=== PATIENT | male | born 1970 | race Caucasian/White ===

== ENCOUNTER 2021-03-13 14:57 | Emergency (ER) | payer SELFPAY ==
[2021-03-13 14:58] VITALS: BP 148/102; PULSE 105; RESP 21; TEMP 36.7; O2SAT 97; BMI 25.0
--- NOTE | 2021-03-13 15:11 | ED.RN ---
pt arrives to ed refusing to wear a mask. a face shield was provided. pt was just at [facility] and was sent to ed. per patient they are not a free clinic any more. he has been verbal aggressive during triage evaluation. pt has been reassured that we are here to help. darlyn keating, rn [id number]
--- NOTE | 2021-03-13 15:59 | ED.VIS.DYS ---
HPI History of Present Illness Chief Complaint: Shortness of Breath Informant: patient Narrative Narrative: 50-year-old male presents to the emergency room Patient is homeless. He states for the past 3 years she has had shortness of breath. He cannot tell me why or what diagnoses he has. He is a smoker. He states he has albuterol rescue inhaler which he is out of. He went to the free clinic today and got mad because they did not have any free samples and they wanted him to pay a co-pay. He came here hoping we can give him an inhaler. He reports that he has been taking Qvar but it does not do any thing for him. He denies any fever or sputum production. [facility] Medical History (Updated 03/13/21 @ 16:[address] Robin Tuttle DO) Chronic dyspnea Home Medications No Known/Unobtainable [No Known Home Medications] 09/04/16 [History Last Taken Unknown] Allergy/AdvReac Type Severity Reaction Status Date / Time No Known Allergies Allergy Verified 03/13/21 15:02 Social History (Updated 03/13/21 @ 16:[address] Robin Tuttle DO) Smoking Status: Current every day smoker substance use type: does not use ROS ROS ED Constitutional Constitutional ED: Denies chills or weight loss Eyes Eyes: Denies change in vision or diplopia ENT ENT ED: Denies ear pain, rhinorrhea or sore throat Cardiovascular Cardiovascular: Denies chest pain, orthopnea, palpitations or racing heartbeat Respiratory/Chest Respiratory/Chest: Reports dyspnea; Denies cough or orthopnea Gastrointestinal Gastrointestinal: Denies abdominal pain, diarrhea, nausea or vomiting Genitourinary Genitourinary ED: Denies dysuria, hematuria or urinary frequency Musculoskeletal Musculoskeletal: Denies arthralgias or myalgias Integumentary Denies abscess or rash Neurologic Neurologic: Denies headache(s) or weakness Psychiatric Psychiatric: Denies anxiety, depression, suicidal ideation or suicidal thoughts Endocrine Endocrinology: Denies polydipsia, polyphagia or polyuria Allergic/Immunologic Allergic/Immunologic ED: Denies mouth swelling, tongue swelling or urticaria EXAM Physical Exam Const Vital Signs: 03/13/21 14:58 Temperature 98.0 F Temperature Source Oral Pulse Rate 105 H Respiratory Rate 21 H Blood Pressure 148/102 H Blood Pressure Mean 117 Pulse Ox 97 Oxygen Delivery Method Room Air Positive well nourished, well developed and unkempt General Appearance ED: unkempt and well developed HEENT Reports normocephalic, head/scalp atraumatic and moist mucous membranes Eyes PERRL and EOMs intact bilaterally Neck no lymphadenopathy, supple and no JVD Resp normal respiratory effort and clear to auscultation bilaterally Cardio regular rate, regular rhythm and no murmurs GI normal to inspection, nondistended, normoactive bowel sounds and non-tender Palpation: soft Back/Spine no CVA tenderness and normal ROM Extremity normal to inspection General Extremety ED: Negative for edema General Extremity: Negative for edema Neuro oriented x3 and CN's II-XII intact bilaterally Sensorium / Orientation: alert Motor Exam: strength 5/5 throughout Psych mental status grossly normal Appearance: unkempt Mood & Affect: Negative for depressed or tearful Skin no rashes or lesions noted and no wounds MDM MDM MDM Narrative Medical decision making narrative: I can get the patient albuterol MDI with a spacer. He needs to follow-up with the free clinic Discharge Plan Triage Chief Complaint: Shortness of Breath ED Provider: Robin Tuttle Dx/Rx/DC Orders Clinical Impression: Chronic dyspnea Instructions: ED Dyspnea Prescriptions: No Action No Known Home Medications RF: 0 Primary Care Provider: Care Physician,No Primary Referrals: Adriana Lyn [NON-STAFF] - As soon as possible Care Physician,No Primary [Primary Care Provider] - Activity Restrictions/Additional Instructions: Inhalers 2 puffs every 4 hours as needed for dyspnea. The rescue inhaler should not be used on a daily basis. Disposition Disposition: Home, Self Care
== END 2021-03-13 16:34 | disposition home or self-care (01) ==
PROVIDERS: Emergency Provider Emergency Medicine
DX: R06.00 Dyspnea, unspecified (principal); R06.02 Shortness of breath; Z59.0 Homelessness; F17.200 Nicotine dependence, unspecified, uncomplicated
CPT/HCPCS: 99282

== ENCOUNTER 2021-04-16 10:13 | Emergency (ER) | payer SELFPAY ==
[2021-04-16 10:14] VITALS: BP 158/118; PULSE 74; RESP 16; TEMP 36.1; O2SAT 98; BMI 25.9
--- NOTE | 2021-04-16 10:30 | EX.ED.DYSGE1 ---
HPI History of Present Illness Chief Complaint: Med Refill Informant: patient Narrative Narrative: Patient is a 50-year-old male who presents to the emergency department for refill of his albuterol inhaler. Patient states he went to an outpatient clinic but was unable to afford the co-pay so he came here instead. Patient does not have a PCP. He is homeless. He states that he has chronic shortness of breath that is no worse than normal. Denies any chest pain at this time. No significant cough. Patient only wants the albuterol inhaler at this time. He denies any other significant complaint. [facility] Medical History (Updated 04/16/21 @ 10:[address] Adolfo Wild DO) Chronic dyspnea Home Medications No Known/Unobtainable [No Known Home Medications] 09/04/16 [History Last Taken Unknown] Allergy/AdvReac Type Severity Reaction Status Date / Time No Known Allergies Allergy Verified 04/16/21 10:16 Social History Smoking Status: Current every day smoker tobacco type: cigarettes substance use type: does not use ROS ROS ED Constitutional Constitutional ED: Denies chills or fever(s) ENT ENT ED: Denies epistaxis or rhinorrhea Cardiovascular Cardiovascular: Denies chest pain Respiratory/Chest Respiratory/Chest: Reports dyspnea; Denies cough Musculoskeletal Musculoskeletal: Denies back pain or neck pain Neurologic Neurologic: Denies dizziness, headache(s) or weakness EXAM Physical Exam Const Vital Signs: 04/16/21 10:14 04/16/21 10:19 Temperature 97 F L Temperature Source Temporal Pulse Rate 74 Respiratory Rate 16 Respiratory Effort Non-Labored Short of Breath Blood Pressure 158/118 H Blood Pressure Mean 131 Pulse Ox 98 Oxygen Delivery Method Room Air General Appearance ED: NAD HEENT Reports normocephalic, head/scalp atraumatic and moist mucous membranes Eyes PERRL and EOMs intact bilaterally Neck supple Chest Wall inspection of chest normal Resp normal respiratory effort and clear to auscultation bilaterally Auscultation: Negative for rales, rhonchi or wheezes Cardio regular rate, regular rhythm and no murmurs Extremity normal to inspection General Extremety ED: Negative for edema General Extremity: Negative for edema Neuro Sensorium / Orientation: alert Motor Exam: strength 5/5 throughout Psych mental status grossly normal Skin no rashes or lesions noted MDM MDM MDM Narrative Medical decision making narrative: Patient presents to the emergency department for refill of his albuterol inhaler. He states he does have Medicare but does not know how to set up a PCP. Did have the social work help him with this. Patient given albuterol inhaler here in the emergency department. Return precautions reviewed. He is discharged home in stable condition. All questions answered. Discharge Plan Triage Chief Complaint: Med Refill ED Provider: Adolfo Wild Dx/Rx/DC Orders Clinical Impression: Encounter for medication refill Instructions: Med Refill Prescriptions: No Action No Known Home Medications RF: 0 Primary Care Provider: Care Physician,No Primary Referrals: Care Physician,No Primary [Primary Care Provider] - 3-5 Days Disposition Disposition: Home, Self Care
--- NOTE | 2021-04-16 11:14 | CM.ED ---
CORAL Note: Referral Source: MD Referral Reason : No Primary Care CORAL met with patient. He reports that he has Medicare. He was provided with information on nursery rn and how to make appointments for PCP. CORAL asked 2 times if patient would allow this ticket writer to make appointment and he declined both time. CORAL talked to registration staff. Per registration patient appears to have medicare a only. Registration said that patient reports he is homeless and can not go to the [employer]. Registration reports that patient was asking about Medicare B and D. CORAL went back in and spoke with patient. He was advised the difference in Medicare program. He said that [employer] told him to come to the hospital as he has hospital benefits. SW explained that while in the ED he is not inpatient and outpatient which would be covered under part A. Patient continued to voice that it would be covered as [employer] told him so. CORAL then provided patient with information on [facility] [employer] and this ticket writer's self pay packet. Patient said he doesn't need it. Sw explained that patient might get prescription assistance through [employer] and patient said Oh, they won't help me. SW explained to patient that there are other prescription programs that he may qualify for and patient then agreed to take self pay packet. Patient said that he has been at [facility]. As this ticket writer was walking out patient said that he didn't want the self pay packet and gave it back to this ticket writer. Plan: CORAL attempted to call for patient and schedule an appointment. Patient said that he is able to make call and declined. Patient was provided with list of PCP/MD for outpatient medical treatment. CORAL attempted to give patient a self pay packet and he declined. CORAL attempted to educate patient on different medicare benefits and coverage. No further CORAL services needed.RN and MD updated. Amy RAZO
[2021-04-16] MEDS: Albuterol Sulfate 8 gm Inhaler (60 puffs) 2 PUFF INHALATION (11:26)
== END 2021-04-16 11:26 | disposition home or self-care (01) ==
LOC: ED 10:48
PROVIDERS: Emergency Provider Emergency Medicine
DX: Z76.0 Encounter for issue of repeat prescription (principal); F17.210 Nicotine dependence, cigarettes, uncomplicated; Z59.0 Homelessness
CPT/HCPCS: 99283

== ENCOUNTER 2021-05-07 13:22 | Emergency (ER) | payer MEDICARE, SELFPAY ==
[2021-05-07 13:22] VITALS: BP 122/75; PULSE 81; RESP 24; TEMP 35.8; O2SAT 97; BMI 55.9
[2021-05-07 13:30] VITALS: O2SAT 98
[2021-05-07 13:34] VITALS: BP 147/115; PULSE 98; RESP 15; O2SAT 98
--- NOTE | 2021-05-07 13:43 | EX.ED.DYSGE1 ---
HPI History of Present Illness Chief Complaint: Shortness of Breath Informant: patient Onset/Context/Timing Onset: - (Acute on chronic) Narrative Narrative: Patient reports presenting due to shortness of breath because he is out of his inhaler. Patient states he went to get a refill today but the correct person [employer] was not there to approve his refill. He reports a history of chronic shortness of breath that is not significantly changed from his current complaint. No fever or chills. No cough. Patient denies any Covid concerns. PFSH PFSH Medical History Chronic dyspnea Smoker Home Medications No Known/Unobtainable [No Known Home Medications] 09/04/16 [History Last Taken Unknown] albuterol 90 mcg INHALATION Q6H PRN PRN 05/07/21 [History Last Taken Unknown] aspirin 81 mg PO DAILY 05/07/21 [History Last Taken Unknown] Allergy/AdvReac Type Severity Reaction Status Date / Time No Known Allergies Allergy Verified 05/07/21 13:22 Social History Smoking Status: Current every day smoker tobacco type: cigarettes substance use type: does not use ROS ROS ED Constitutional Constitutional ED: Denies chills or fever(s) Eyes Eyes: Denies change in vision ENT ENT ED: Denies sore throat Cardiovascular Cardiovascular: Denies chest pain Respiratory/Chest Respiratory/Chest: Reports dyspnea; Denies cough Gastrointestinal Gastrointestinal: Denies abdominal pain, diarrhea, nausea or vomiting Musculoskeletal Musculoskeletal: Denies back pain Integumentary Denies rash Neurologic Neurologic: Denies headache(s) or weakness Allergic/Immunologic Allergic/Immunologic ED: Denies urticaria EXAM Physical Exam Const Vital Signs: 05/07/21 13:22 05/07/21 13:30 05/07/21 13:34 Temperature 96.5 F L Temperature Source Temporal Pulse Rate 81 98 Respiratory Rate 24 H 15 Respiratory Effort Normal Respiratory Depth Normal Respiratory Pattern Normal Blood Pressure 122/75 H 147/115 H Blood Pressure Mean 90 125 Pulse Ox 97 98 Oxygen Delivery Method Room Air Room Air Room Air Positive well nourished and well developed General Appearance ED: well developed HEENT Reports normocephalic and head/scalp atraumatic Eyes PERRL and EOMs intact bilaterally Neck supple Chest Wall inspection of chest normal and palpation of chest normal Resp normal respiratory effort Auscultation: diminished lung sounds Cardio regular rate and regular rhythm GI normal to inspection, nondistended, normoactive bowel sounds and non-tender Palpation: soft Extremity normal to inspection Neuro oriented x3 and no sensory deficits noted Sensorium / Orientation: alert Motor Exam: strength 5/5 throughout Psych Mood & Affect: anxious Skin no rashes or lesions noted MDM MDM MDM Narrative Medical decision making narrative: Patient was given albuterol inhaler here. He demonstrated appropriate use and does feel improved. He does not wish for any further testing. He will be discharged with the inhaler. Discharge Plan Triage Chief Complaint: Shortness of Breath ED Provider: Yeni Pollard Dx/Rx/DC Orders Clinical Impression: Dyspnea Instructions: ED Dyspnea Prescriptions: No Action No Known Home Medications RF: 0 aspirin 81 mg Tablet 81 mg PO DAILY RF: 0 albuterol 90 mcg/actuation Aerosol 90 mcg INHALATION Q6H PRN PRN (Reason: dypsnea) RF: 0 Primary Care Provider: Care Physician,No Primary Referrals: Adriana Lyn [NON-STAFF] - 1 Week if not improving Care Physician,No Primary [Primary Care Provider] - Disposition Disposition: Home, Self Care
[2021-05-07] MEDS: Albuterol Sulfate 8 gm Inhaler (60 puffs) 4 PUFF INHALATION (15:00)
[2021-05-07 15:05] VITALS: BP 132/94; PULSE 75; RESP 16; O2SAT 95
--- NOTE | 2021-05-07 15:05 | ED.RN ---
REVIEWED D/C INSTRUCTIONS, FOLLOW UP CARE, AND S/S THAT WOULD WARRANT A RETURN TO THE ED WITH PT. PT VERBALIZED AN UNDERSTANDING AND DENIES FURTHER QUESTIONS FOR THIS RN. PT SKIN P/W/D, RESP EVEN AND UNLABORED, PT A&O X 3, NO DISTRESS NOTED. PT AMBULATED OUT OF ED, GAIT STEADY.
== END 2021-05-07 15:06 | disposition home or self-care (01) ==
PROVIDERS: Emergency Provider Emergency Medicine
DX: R06.00 Dyspnea, unspecified (principal); F17.210 Nicotine dependence, cigarettes, uncomplicated; Z79.82 Long term (current) use of aspirin; Z79.899 Other long term (current) drug therapy
CPT/HCPCS: 99282

== ENCOUNTER 2021-05-29 12:03 | Emergency (ER) | payer SELFPAY ==
[2021-05-29 12:04] VITALS: BP 161/113; PULSE 117; RESP 16; TEMP 37.1; O2SAT 95; BMI 25.2
--- NOTE | 2021-05-29 12:12 | ED.RN ---
Patient arrives with purposeful forceful breathing. Stating he had SOB and has been seen here the last 3 months for the same. He stated it felt like arms and hands were asleep. Pt. was able to slow breathing with encouragement and stated he was beginning to feel better. He was placed in second triage room to maintain contact in case of furher issues.
--- NOTE | 2021-05-29 12:26 | ED.RN ---
Patient currently talking on telephone without any difficulty. Common speech pattern, speaking full sentences, with no obvious difficulty managing breathing.
[2021-05-29 12:43] VITALS: O2SAT 96
--- NOTE | 2021-05-29 12:58 | ED.VIS.DYS ---
HPI History of Present Illness Chief Complaint: Shortness of Breath Informant: patient Onset/Context/Timing Onset: Month(s) Context: gradual Timing: Intermittent Quality: Positive for Dyspnea on exertion and Wheezing Current Severity: Mild Maximum Severity: Mild Worsened by: Exertion Relieved by: Rest and Albuterol Associated Symptoms cough; Negative for rhinorrhea, post nasal drip, ear pain, fever, clear sputum, white sputum, yellow sputum or green sputum Chest Pain: Positive for None Narrative Narrative: 50-year-old male states he is on disability and has Medicare. Smokes about half a pack of cigarettes a day. States he has had dyspnea and shortness of breath for the last 5 years. Thinks he was diagnosed at one time with COPD. Has no known cardiac disease. Denies any history of DVT or PE. He has no chest pain or hemoptysis. No leg pain or swelling. PE Risk Factors: Negative for Cancer, OCP + Smoking + > 35, Prior DVT or PE, Recent immobilization, Recent surgery and Recent travel Prior similar symptoms: Yes Recent Illness/Hospitalization: No PFSH PFSH Medical History Chronic dyspnea Smoker Home Medications No Known/Unobtainable [No Known Home Medications] 09/04/16 [History Last Taken Unknown] albuterol 90 mcg INHALATION Q6H PRN PRN 05/07/21 [History Last Taken Unknown] aspirin 81 mg PO DAILY 05/07/21 [History Last Taken Unknown] Allergy/AdvReac Type Severity Reaction Status Date / Time No Known Allergies Allergy Verified 05/29/21 12:08 Social History Smoking Status: Current every day smoker tobacco type: cigarettes substance use type: does not use ROS ROS ED ROS Narrative Shortness of Review of Systems ROS Unobtainable: Denies due to encephalopathy Constitutional Constitutional ED: Denies chills or fever(s) Eyes Eyes: Denies change in vision ENT ENT ED: Denies ear pain Cardiovascular Cardiovascular: Denies chest pain Respiratory/Chest Respiratory/Chest: Reports cough and dyspnea Gastrointestinal Gastrointestinal: Denies abdominal pain, diarrhea, nausea or vomiting Genitourinary Genitourinary ED: Denies dysuria Musculoskeletal Musculoskeletal: Denies myalgias Integumentary Denies rash Neurologic Neurologic: Denies headache(s) Psychiatric Psychiatric: Denies depression Endocrine Endocrinology: Denies polyuria Hematologic/Lymphatic Hematologic/Lymphatic: Denies easy bruising Allergic/Immunologic Allergic/Immunologic ED: Denies urticaria EXAM Physical Exam Narrative Exam Narrative: Middle-aged male no acute distress vital signs stable he is afebrile he does not look septic toxic. Patient is actively making himself wheeze once he starts talking and relaxes he is breathing normally. He is not hypoxic. HEENT exam unremarkable. Moist remembers. Neck nontender no JVD no lymphadenopathy. Lungs equal symmetrical. Scattered expiratory wheezes. No rales or rhonchi. Heart regular rhythm about 110 no murmur. Abdomen soft nontender normal bowel sounds no peritoneal signs. Moving all 4 extremities. Calves are nontender no edema or cords. Neurologically is awake alert with no focal motor deficit. In the chair by his bedside he has 10 empty inhalers. Const Vital Signs: 05/29/21 12:04 05/29/21 12:43 Temperature 98.8 F Temperature Source Temporal Pulse Rate 117 H Respiratory Rate 16 Respiratory Effort Short of Breath Blood Pressure 161/113 H Blood Pressure Mean 129 Pulse Ox 95 Oxygen Delivery Method Room Air Room Air Positive well nourished, well developed and unkempt; Negative for obese, cachectic or contractures General Appearance ED: unkempt, well developed and NAD; Negative for cachectic or contractures Nutritional Appearance: Negative for cachectic or obese HEENT Reports moist mucous membranes atraumatic; Negative for trauma Eyes PERRL and EOMs intact bilaterally Neck no lymphadenopathy, supple, no meningeal signs and no JVD Resp normal respiratory effort Auscultation: wheezes; Negative for diminished lung sounds Cardio regular rhythm, S1 normal heart sound, S2 normal heart sound and no murmurs Rate: tachycardic GI non-tender, non-distended and no masses Auscultation: normoactive bowel sounds Palpation: soft; Negative for tender, guarding or rebound tenderness present Back/Spine no CVA tenderness and normal to inspection Extremity normal to inspection General Extremety ED: Negative for edema or tenderness General Extremity: Negative for edema Neuro oriented x3 Sensorium / Orientation: alert, oriented to place and oriented to time Motor Exam: strength 5/5 throughout Psych mental status grossly normal Appearance: unkempt Skin no wounds Lesions: no lesions Rashes: no rashes MDM MDM MDM Narrative Medical decision making narrative: Middle-age male complaining of dyspnea. He needs to stop smoking. He most likely has underlying COPD. He has had prior work-ups. He is requesting an inhaler even know he has a prescription currently for inhaler. He does not want steroids. Patient needs no treatments. He will be discharged home to get his inhaler filled and follow-up with a primary care physician. Discharge Plan Triage Chief Complaint: Shortness of Breath ED Provider: Yimi Grant Dx/Rx/DC Orders Clinical Impression: Chronic dyspnea, COPD (chronic obstructive pulmonary disease) Instructions: ED CHF Left Side, ED Dyspnea Prescriptions: No Action No Known Home Medications RF: 0 aspirin 81 mg Tablet 81 mg PO DAILY RF: 0 albuterol 90 mcg/actuation Aerosol 90 mcg INHALATION Q6H PRN PRN (Reason: dypsnea) RF: 0 Primary Care Provider: Care Physician,No Primary Referrals: Adriana Lyn [NON-STAFF] - As soon as possible Elias Jensen MD [NON-STAFF] - As soon as possible Care Physician,No Primary [Primary Care Provider] - Activity Restrictions/Additional Instructions: Get your inhaler prescription filled. You absolutely have to stop smoking. Follow-up with either the Adriana mehta or Dr. Jensen to have a primary care physician. Disposition Disposition: Home, Self Care
--- NOTE | 2021-05-29 13:13 | ED.RN ---
PT VERY ANGRY THAT HE WAS NOT GIVEN AN INHALER. STATES THIS IS JUST A [facility]AT[facility] AND THAT OUR TIME IS WORTHLESS AND HE IS GOING TO CALL MEDICARE AND TELL THEM NOT TO PAY US BECAUSE WE DIDN'T DO SHIT FOR HIM. STATES HE IS REFUSING TO PAY FOR A INHALER AND WE SHOULD GIVE HIM ONE. PT HILDA LIZ 10 USED INHALER CANISTERS ON THE CHAIR NEXT TO HIM
== END 2021-05-29 13:15 | disposition home or self-care (01) ==
LOC: ED 13:05
PROVIDERS: Emergency Provider Emergency Medicine
DX: R06.00 Dyspnea, unspecified (principal); J44.9 Chronic obstructive pulmonary disease, unspecified; F17.210 Nicotine dependence, cigarettes, uncomplicated; Z79.82 Long term (current) use of aspirin; Z79.899 Other long term (current) drug therapy
CPT/HCPCS: 99282

== ENCOUNTER 2022-03-23 05:37 | Emergency (ER) | payer MEDICARE, MEDICAID, SELFPAY ==
[2022-03-23 05:39] VITALS: BP 181/146; PULSE 102; RESP 20; TEMP 36.6; O2SAT 99; BMI 25.2
[2022-03-23 05:42] VITALS: O2SAT 98
--- NOTE | 2022-03-23 05:51 | EDS_ITS ---
HPI History of Present Illness Chief Complaint: Shortness of Breath Informant: patient Narrative Narrative: Presents with dyspnea. History of COPD states he is cut back on smoking. He ran out of his inhaler. Chronic cough for 5 years. He states chronic wheeze. Denies fevers headache vomiting or diarrhea. History of similar. States inhaler does help. Presented angry yelling at staff, however he was able to be calmed down. He states he does have a prescription for his inhaler however cannot fill it currently. Prior similar symptoms: Yes PFSH PFSH Medical History Chronic dyspnea Smoker Home Medications No Known/Unobtainable [No Known Home Medications] 09/04/16 [History Last Taken Unknown] albuterol 90 mcg/actuation aerosol inhaler 90 mcg inhalation Q6H PRN PRN dypsnea 05/07/21 [History Last Taken Unknown] aspirin 81 mg tablet 81 mg PO DAILY 05/07/21 [History Last Taken Unknown] Allergy/AdvReac Type Severity Reaction Status Date / Time No Known Allergies Allergy Verified 05/29/21 12:08 Social History Smoking Status: Current every day smoker tobacco type: cigarettes substance use type: does not use ROS ROS ED Constitutional Constitutional ED: Denies chills, fever(s) or sweats Eyes Eyes: Denies change in vision ENT ENT ED: Denies dysphagia or sore throat Cardiovascular Cardiovascular: Denies chest pain, leg edema, palpitations or racing heartbeat Respiratory/Chest Respiratory/Chest: Reports cough and dyspnea; Denies dyspnea on exertion Gastrointestinal Gastrointestinal: Denies abdominal pain, diarrhea, nausea or vomiting Genitourinary Genitourinary ED: Denies dysuria, hematuria or urinary frequency Musculoskeletal Musculoskeletal: Denies back pain, extremity pain or neck pain Integumentary Denies rash or wounds Neurologic Neurologic: Denies headache(s), paresthesias or weakness EXAM Physical Exam Const Vital Signs: 03/23/22 05:39 03/23/22 05:42 03/23/22 06:11 Temperature 97.8 F Temperature Source Temporal Pulse Rate 102 H Respiratory Rate 20 H Respiratory Effort Normal Non-Labored Respiratory Depth Normal Respiratory Pattern Normal Blood Pressure 181/146 H Blood Pressure Mean 157 Pulse Ox 99 98 Oxygen Delivery Method Room Air Room Air Positive well nourished and unkempt Constitutional Narrative: Speaking in full sentences. General Appearance ED: unkempt and NAD HEENT Reports moist mucous membranes normocephalic and atraumatic Eyes PERRL, EOMs intact bilaterally and conjunctivae normal General Eye ED: Yes normal appearance of both eyes Neck no lymphadenopathy and supple General: Negative for tenderness Chest Wall Chest: Negative for tenderness Resp normal respiratory effort and normal air movement Effort and Inspection: symmetric chest movement; Negative for respiratory di stress Auscultation: Negative for wheezes Cardio regular rate, regular rhythm and no murmurs Peripheral Pulses: pulses 2+ throughout GI normal to inspection, nondistended, normoactive bowel sounds and non-tender Palpation: Negative for guarding or rebound tenderness present Back/Spine no CVA tenderness and no thoracic nor lumbar tenderness Extremity normal to inspection General Extremety ED: Negative for edema or tenderness General Extremity: Negative for edema Neuro oriented x3 and no sensory deficits noted Sensorium / Orientation: awake and alert Psych Appearance: unkempt Skin Skin Narrative: Feet with dirt and callus. MDM MDM MDM Narrative Medical decision making narrative: Patient nontoxic. Patient out of his inhaler. [facility] take-home inhaler provided. Improved his symptoms. We will continue to try to quit smoking. He is given follow-up as an outpatient. All questions were answered. Discharge Plan Triage Chief Complaint: Shortness of Breath ED Provider: Alden Ferrari Dx/Rx/DC Orders Clinical Impression: Chronic dyspnea, Encounter for medication refill, COPD (chronic obstructive pulmonary disease) Instructions: Asthma and COPD Prescriptions: No Action No Known Home Medications aspirin 81 mg Tablet 81 mg PO DAILY albuterol 90 mcg/actuation Aerosol 90 mcg INHALATION Q6H PRN PRN (Reason: dypsnea) Primary Care Provider: Adriana Lyn Referrals: Adriana Lyn [Primary Care Provider] - 1-2 Weeks Care Physician,No Primary [NON-STAFF] - Activity Restrictions/Additional Instructions: Continue to avoid smoking. Use your inhaler as needed. Disposition Disposition: Home, Self Care Discharge Date/Time: 03/23/22 06:24
[2022-03-23 06:11] VITALS: O2SAT 98
== END 2022-03-23 06:24 | disposition home or self-care (01) ==
LOC: ED 06:14
PROVIDERS: Emergency Provider Emergency Medicine; Visit Provider Emergency Medicine
DX: J44.9 Chronic obstructive pulmonary disease, unspecified (principal); Z76.0 Encounter for issue of repeat prescription; Z79.82 Long term (current) use of aspirin; Z79.899 Other long term (current) drug therapy; F17.210 Nicotine dependence, cigarettes, uncomplicated
CPT/HCPCS: 99282

== ENCOUNTER 2022-04-04 17:41 | Emergency (ER) | payer MEDICARE, MEDICAID, SELFPAY ==
[2022-04-04 17:41] VITALS: BP 127/92; PULSE 122; RESP 16; TEMP 36.6; O2SAT 94; BMI 24.0
--- NOTE | 2022-04-04 18:40 | ED.RN ---
PT STATES HE IS LEAVING FOR AWHILE BUT WILL BE BACK. PT VERBALIZES UNDERSTANDING THAT HE WILL LOSE PLACE IN LINE TO BE SEEN.
== END 2022-04-04 19:00 | disposition left against medical advice (07) ==
LOC: ED 22:30
DX: K08.89 Other specified disorders of teeth and supporting structures (principal); Z53.21 Procedure and treatment not carried out due to patient leaving prior to being seen by health care provider

== ENCOUNTER 2022-04-05 02:09 | Emergency (ER) | payer MEDICARE, MEDICAID, SELFPAY ==
[2022-04-05 02:10] VITALS: PULSE 98; RESP 16; TEMP 36.9; O2SAT 97; BMI 24.7
[2022-04-05 02:13] VITALS: BP 138/106; TEMP 36.9; BMI 24.7
[2022-04-05] MEDS: Amox/Clavulanate 875 MG Tablet PO (02:54)
[2022-04-05] MEDS: Naproxen 500 MG Tablet PO (02:55)
--- NOTE | 2022-04-05 02:55 | EDS_ITS ---
HPI History of Present Illness Chief Complaint: Dental Narrative Narrative: Patient presenting with dental pain. 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 He states he is never had a problem with it. He then stated that he may have had a dental trauma 5 years ago which caused the loss of his right central incisor. He states he is never been seen for this, however he also states that the dentist would not remove it. He has not had a fever or chills. No nausea or vomiting. Has not taken anything for pain except for a beer. He states he has Medicaid and all of his bills are paid in the emergency room. He does not believe he needs a primary care physician. He sees Adriana Lyn at times. PFSH PFSH Medical History Chronic dyspnea Smoker Home Medications albuterol 90 mcg/actuation aerosol inhaler 90 mcg inhalation Q6H PRN PRN dypsnea 05/07/21 [History Last Taken Unknown] aspirin 81 mg tablet 81 mg PO DAILY 05/07/21 [History Last Taken Unknown] amoxicillin 875 mg-potassium clavulanate 125 mg tablet 1 tab PO BID #20 tabs 04/05/22 [Rx Last Taken Unknown] naproxen 500 mg tablet (Naprosyn) 500 mg PO BID PRN pain #30 tabs 04/05/22 [Rx Last Taken Unknown] Allergy/AdvReac Type Severity Reaction Status Date / Time No Known Allergies Allergy Verified 04/04/22 17:42 Social History Smoking Status: Current every day smoker tobacco type: cigarettes substance use type: does not use ROS ROS ED Constitutional Constitutional ED: Denies chills or fever(s) Eyes Eyes: Denies change in vision ENT ENT ED: Reports other Details: Dental pain ; Denies ear pain, rhinorrhea or sore throat Cardiovascular Cardiovascular: Denies chest pain or palpitations Respiratory/Chest Respiratory/Chest: Denies cough or dyspnea Gastrointestinal Gastrointestinal: Denies abdominal pain or constipation Genitourinary Genitourinary ED: Denies dysuria or hematuria Musculoskeletal Musculoskeletal: Denies arthralgias or back pain Integumentary Denies abscess or Abrasions Neurologic Neurologic: Denies headache(s) Psychiatric Psychiatric: Denies anxiety or depression EXAM Physical Exam Const Vital Signs: 04/05/22 02:10 04/05/22 02:13 Temperature 98.4 F 98.5 F Temperature Source Temporal Temporal Pulse Rate 98 Respiratory Rate 16 Blood Pressure 138/106 H Blood Pressure Mean 116 Pulse Ox 97 Oxygen Delivery Method Room Air Positive well nourished General Appearance ED: NAD HEENT HEENT Narrative: Right upper central incisor is fractured. This appears to be an old fracture. It is eroded and decayed. There is no fluctuance around the tooth. Patient states is not swollen. Negative for trauma Mouth ED: Yes oral and palatal mucosa normal, Yes lips normal and Yes tongue normal Mouth: oral and palatal mucosa normal, lips normal and tongue normal Throat: posterior oropharynx normal Eyes PERRL Neck no lymphadenopathy Resp normal respiratory effort Cardio regular rate and regular rhythm Extremity normal to inspection Neuro oriented x3 and CN's II-XII intact bilaterally Sensorium / Orientation: alert Psych mental status grossly normal Skin no rashes or lesions noted MDM MDM MDM Narrative Medical decision making narrative: Patient presenting with dental pain. He states that the started bothering him a few days ago. He lost his upper central incisor either 5 years ago or 10 years ago he keeps changing his story. He also states he is never been seen for it but then states that when he saw dentist he would remove it. Patient does not any facial swelling or any signs of Ludewig's angina. He has not taken anything for pain and request prescriptions because I am poor and my medications are covered. I think it is reasonable to start the patient on Augmentin and Naprosyn. He was given a dental referral sheet. I tried to speak to him at length on the need for a primary care provider so that if his medication should run out or he should need anything he would have a primary care follow-up but he stated no need for that that is why you are here. He became a little bit angry that I was not going to remove his tooth and I told him that we do not remove teeth in the emergency room to which she replied will you remove the limbs but she do not removed teeth. I informed him that we do not remove limbs in the emergency room either. I will give the patient dental referral. He st arted on appropriate medications. Return precautions discussed. Impression: 1. Dental fracture 2. Dental infection Discharge Plan Triage Chief Complaint: Dental ED Provider: Hunter Lopez Dx/Rx/DC Orders Instructions: ED Dental Pain, ED Dental Cavity Prescriptions: New amoxicillin-pot clavulanate 875-125 mg tablet 1 tab PO BID Qty: 20 0RF naproxen [Naprosyn] 500 mg tablet 500 mg PO BID PRN (Reason: pain) Qty: 30 0RF No Action aspirin 81 mg Tablet 81 mg PO DAILY albuterol 90 mcg/actuation Aerosol 90 mcg INHALATION Q6H PRN PRN (Reason: dypsnea) Primary Care Provider: Care Physician,No Primary Referrals: Adriana Lyn [Non-Staff] - Disposition Disposition: Home, Self Care
== END 2022-04-05 02:56 | disposition home or self-care (01) ==
LOC: ED 02:46
PROVIDERS: Emergency Provider Student in an Organized Health Care Education/Training Program; Visit Provider Student in an Organized Health Care Education/Training Program
DX: S02.5XXD Fracture of tooth (traumatic), subsequent encounter for fracture with routine healing (principal); X58.XXXD Exposure to other specified factors, subsequent encounter; K04.7 Periapical abscess without sinus; F17.210 Nicotine dependence, cigarettes, uncomplicated; Z79.82 Long term (current) use of aspirin; Z79.1 Long term (current) use of non-steroidal anti-inflammatories (NSAID)
CPT/HCPCS: 99283

== ENCOUNTER 2022-04-20 08:14 | Emergency (ER) | payer MEDICARE, MEDICAID, SELFPAY ==
[2022-04-20 08:16] VITALS: BP 143/92; PULSE 107; RESP 22; TEMP 36.2; O2SAT 100; BMI 23.7
[2022-04-20 08:25] VITALS: BP 138/105; PULSE 104; RESP 14; O2SAT 96
[2022-04-20 08:27] VITALS: O2SAT 97
--- NOTE | 2022-04-20 08:35 | RAD_ITS ---
EXAM: XR CHEST, 1 VIEW CLINICAL INDICATION: L chest pain, dyspnea TECHNIQUE: Frontal view of the chest. This report was created using [employer] report generation technology. COMPARISON: 01/25/2016 FINDINGS: LUNGS AND PLEURAL SPACES: Unremarkable. No consolidation or edema. No pneumothorax. No effusion. HEART: Unremarkable. Cardiac silhouette not enlarged. MEDIASTINUM: Central airways and mediastinal contour are unremarkable. BONES/JOINTS: Unremarkable. SOFT TISSUES: Unremarkable. RAD/Chest 1 View (Portable) IMPRESSION: No radiographic evidence of acute cardiopulmonary disease. Electronically Signed: Pranay Pace MD at 9:10 EDT ,
--- NOTE | 2022-04-20 08:36 | EKG12_ITS ---
Test Reason : SOB Blood Pressure : / mmHG Vent. Rate : 091 BPM Atrial Rate : 091 BPM P-R Int : 162 ms QRS Dur : 146 ms QT Int : 418 ms P-R-T Axes : 083 -54 085 degrees QTc Int : 514 ms Normal sinus rhythm Left axis deviation Left bundle branch block Abnormal ECG Confirmed by KATHLEEN PATINO, ROSINA ([id number]), graphics editor PAUL DÍAZ ([id number]) on 04/22/2022 9:11:58 AM Referred By: Confirmed By:DEMARCUS WANG MD
--- NOTE | 2022-04-20 08:40 | EX.ED.DYSGE1 ---
HPI History of Present Illness Chief Complaint: Shortness of Breath Onset/Context/Timing Onset: Days Timing: Waxes and wanes Quality: Stabbing Location: Left upper quadrant Maximum Severity: Severe Worsened by: Certain positions Associated Symptoms Associated Symptoms: Shortness of breath Narrative Narrative: Patient has multiple complaints. He reports a stabbing sensation in his left upper quadrant/left lower chest anteriorly. It does not radiate. He is unsure if he had this before. Nothing seemed to bring it on, but is worse with certain positions. Associate with shortness of breath. He was on steroids and inhalers, and they seem to help sometimes, but he is out. Denies fever, sputum change, leg swelling. Denies any history of heart disease or PE/DVT. Denies any recent illness or trauma. He is also complaining of right upper dental pain. He has a fractured tooth secondary to underlying decay. He tries to keep the area clean and he has been taking Augmentin, but he has not been able to see a dentist yet. He also has swelling to his left upper eyelid and is not sure what caused this. [facility] Medical History Chronic dyspnea Smoker Home Medications albuterol 90 mcg/actuation aerosol inhaler 90 mcg inhalation Q6H PRN PRN dypsnea 05/07/21 [History Last Taken Unknown] aspirin 81 mg tablet 81 mg PO DAILY 05/07/21 [History Last Taken Unknown] amoxicillin 875 mg-potassium clavulanate 125 mg tablet 1 tab PO BID #20 tabs 04/05/22 [Rx Last Taken Unknown] naproxen 500 mg tablet (Naprosyn) 500 mg PO BID PRN pain #30 tabs 04/05/22 [Rx Last Taken Unknown] albuterol sulfate 90 mcg/actuation aerosol inhaler (Proventil HFA) 2 puff inhalation Q6H PRN shortness of breath or wheezing #8.5 grams 04/20/22 [Rx Last Taken Unknown] penicillin V potassium 500 mg tablet 500 mg PO 4X/DAY #40 tabs 04/20/22 [Rx Last Taken Unknown] prednisone 10 mg tablet 60 mg PO DAILY 4 days #24 tabs 04/20/22 [Rx Last Taken Unknown] Allergy/AdvReac Type Severity Reaction Status Date / Time No Known Allergies Allergy Verified 04/20/22 08:29 Social History Smoking Status: Current every day smoker tobacco type: cigarettes substance use type: does not use ROS ROS ED Constitutional Constitutional ED: Denies chills or fever(s) Eyes Eyes: Denies blurry vision or change in vision ENT ENT ED: Denies ear pain, rhinorrhea or sore throat Cardiovascular Cardiovascular: Reports chest pain; Denies orthopnea, palpitations, paroxysmal nocturnal dyspnea or racing heartbeat Respiratory/Chest Respiratory/Chest: Reports dyspnea; Denies cough, dyspnea on exertion, orthopnea, paroxysmal nocturnal dyspnea or sputum Gastrointestinal Gastrointestinal: Reports abdominal pain; Denies constipation, diarrhea, melena, nausea or vomiting Genitourinary Genitourinary ED: Denies dysuria or hematuria Musculoskeletal Musculoskeletal: Denies arthralgias or back pain Integumentary Reports abscess; Denies Abrasions or rash Neurologic Neurologic: Denies headache(s) or paresthesias Psychiatric Psychiatric: Denies anxiety Endocrine Endocrinology: Denies cold intolerance Hematologic/Lymphatic Hematologic/Lymphatic: Denies easy bruising EXAM Physical Exam Const Vital Signs: 04/20/22 08:16 04/20/22 08:25 04/20/22 08:27 Temperature 97.2 F L Temperature Source Temporal Pulse Rate 107 H 104 H Respiratory Rate 22 H 14 Respiratory Effort Short of Breath Labored Respiratory Depth Deep Respiratory Pattern Tachypnea Blood Pressure 143/92 H 138/105 H Blood Pressure Mean 109 116 Pulse Ox 100 96 Oxygen Delivery Method Room Air Room Air Nasal Cannula Oxygen Flow Rate (L/min) 2 04/20/22 08:55 04/20/22 10:25 04/20/22 10:30 Temperature 95.5 F L 95.5 F L Temperature Source Temporal Pulse Rate 95 83 83 Respiratory Rate 18 16 16 Respiratory Effort Respiratory Depth Respiratory Pattern Normal Blood Pressure 116/71 116/71 Blood Pressure Mean 86 Pulse Ox 97 97 Oxygen Delivery Method Room Air Oxygen Flow Rate (L/min) Positive well nourished and well developed General Appearance ED: well developed HEENT Reports moist mucous membranes HEENT Narrative: Right upper central incisor is fractured secondary to underlying decay Eyes PERRL and EOMs intact bilaterally Eyes Narrative: Small stye left upper eyelid Neck no lymphadenopathy Resp normal respiratory effort and clear to auscultation bilaterally Cardio regular rate and regular rhythm GI normal to inspection, nondistended, normoactive bowel sounds Extremity normal to inspection General Extremety ED: Negative for edema or tenderness General Extremity: Negative for edema Neuro oriented x3 Sensorium / Orientation: alert Psych mental status grossly normal MDM MDM MDM Narrative Medical decision making narrative: EKG showed sinus rhythm at a rate of 91. Left bundle branch block noted. No sign of infarction. This was interpreted by me. Chest x-ray was interpreted by the radiologist and me. This showed no acute abnormalities. Patient symptoms sound like COPD, asthma, or possibly infectious. His pain is not typical for ACS. He has no history or signs of PE. His work-up, as below was all fairly unremarkable. His symptoms improved with reading treatments and steroids. He will be prescribed the same. Regarding his dental fracture, he will be maintained on his antibiotics and was referred to the dental clinic list for follow-up. Regarding his stye, he was referred to ophthalmology for follow-up. Patient will be discharged. Return for any new or worsening issues. Impression #1 atypical chest pain Impression #2 cough Impression #3 left eye stye Impression #4 dental fracture Lab Data Attestation: I reviewed the patient's lab results. Labs: Laboratory Results - last 24 hr 04/20/22 04/20/22 09:12 09:12 WBC 8.1 RBC 5.22 Hgb 16.9 H Hct 49.2 MCV 94.3 H MCH 32.4 H MCHC 34.3 RDW Std Deviation 47.2 H RDW Coeff of [place] 13.7 Plt Count 170 MPV 10.5 Immature Gran % (Auto) 0.500 Neut % (Auto) 50.4 Lymph % (Auto) 32.6 [place] % (Auto) 11.9 H Eos % (Auto) 4.0 Baso % (Auto) 0.6 Absolute Neuts (auto) 4.1 Absolute Lymphs (auto) 2.64 Nucleated RBC % 0 Sodium 138 Potassium 4.2 Chloride 110 H Carbon Dioxide 22.0 Anion Gap 6 BUN 9 Creatinine 0.87 Estim Creat Clear Calc 104.58 Est GFR (MDRD) Af Amer 118 Est GFR (MDRD) Non-Af 97 BUN/Creatinine Ratio 10.3 Glucose 117 H Calcium 8.4 L Total Bilirubin 0.70 AST 17 ALT 24 Alkaline Phosphatase 57 Troponin I High Sens 6 Total Protein 6.5 Albumin 3.1 L Globulin 3.4 Albumin/Globulin Ratio 0.9 Lipase 150 Radiography Diagnostic Testing: Clinical Impression(s) from Imaging Studies Chest X-Ray 04/20/22 08:35 IMPRESSION: No radiographic evidence of acute cardiopulmonary disease. Electronically Signed: Pranay Pace MD at 9:10 EDT , Discharge Plan Triage Chief Complaint: Shortness of Breath ED Provider: Robin Arenas Dx/Rx/DC Orders Instructions: ED Bronchitis, No Antibiotic (Adult) Prescriptions: New albuterol sulfate [Proventil HFA] 90 mcg/actuation HFA aerosol inhaler 2 puff inhalation Q6H PRN (Reason: shortness of breath or wheezing) Qty: 8.5 1RF prednisone 10 mg tablet 60 mg PO DAILY 4 Days Qty: 24 0RF penicillin V potassium 500 mg tablet 500 mg PO 4X/DAY Qty: 40 0RF No Action aspirin 81 mg Tablet 81 mg PO DAILY albuterol 90 mcg/actuation Aerosol 90 mcg INHALATION Q6H PRN PRN (Reason: dypsnea) amoxicillin-pot clavulanate 875-125 mg tablet 1 tab PO BID Qty: 20 0RF naproxen [Naprosyn] 500 mg tablet 500 mg PO BID PRN (Reason: pain) Qty: 30 0RF Primary Care Provider: Care Physician,No Primary Referrals: Benita Suh MD [Med Staff - [employer]] - Nelson Badillo MD [Med Staff - Active Staff] - Dentist,Your [STAFF PHYSICIAN] - (see dental clinic list) Disposition Disposition: Home, Self Care Discharge Date/Time: 04/20/22 10:50
[2022-04-20] MEDS: Albuterol 2.5 MG/3 ML VIAL.NEB. INHALATION (08:51)
[2022-04-20] MEDS: Ipratropium/Albuterol Sulfate 3 ML AMPUL.NEB INHALATION (08:51)
[2022-04-20 08:55] VITALS: PULSE 95; RESP 18
[2022-04-20 09:23] LABS: Absolute Lymphocyte Count 2.64 X10^3/uL (0.83-4.51); Absolute Neutrophil Count 4.1 X10^3/uL (2.0-7.7); Basophil# 0.05 X10^3/uL; Basophil% 0.6 % (0-1); Eosinophil# 0.32 X10^3/uL; Hematocrit 49.2 % (40-54); Hemoglobin 16.9 g/dL (13.0-16.5); Lymphocyte # 2.64 X10^3/ul (0.83-4.51); Lymphocyte % 32.6 % (19-41); Mean Corp Hgb Conc 34.3 g/dL (32-36); Mean Corpuscular Hgb 32.4 pg (27.0-32.0); Mean Corpuscular Volume 94.3 fL (80-94); Mean Platelet Vol. 10.5 fl (6.2-12.0); Monocyte# 0.96 X10^3/uL; Monocyte% 11.9 % (0-10); NRBC Flagged by Analyzer 0 % (0-5); Neutrophil # 4.09 X10^3/uL (2.7-7.7); Neutrophil % 50.4 % (47-70); Platelet Count 170 K/mm3 (150-450); RBC Distribution Width CV 13.7 % (11.6-14.6); RBC Distribution Width SD 47.2 fl (35.1-43.9); Red Blood Count 5.22 M/mm3 (4.6-6.2); White Blood Count 8.1 K/mm3 (4.4-11.0)
[2022-04-20] MEDS: MethylPREDNISolone 125 MG/2 ML Vial IV (09:36)
[2022-04-20 09:46] LABS: ALB/GLOB Ratio 0.9 RATIO (0.9-2.4); AST(SGOT) 17 U/L (15-37); Alanine Aminotransfer ALT/SGPT 24 U/L (16-61); Albumin, Serum 3.1 g/dL (3.2-5.0); Alkaline Phosphatase 57 U/L (45-117); Anion Gap 6 (5-15); BUN 9 mg/dL (7-18); BUN/Creat Ratio 10.3 RATIO (10-20); Calcium,Total 8.4 mg/dL (8.5-10.1); Chloride 110 mmol/L (98-107); Creatinine, Serum 0.87 mg/dL (0.70-1.30); EST Glomerular Filtration Rate 97 mL/min (>60); Est Glom Filt Rate - Afr Amer 118 mL/min (>60); Estimated Creatinine Clearance 104.58 ml/min; Globulin 3.4 g/dL (2.2-4.2); Glucose 117 mg/dL (74-106); Lipase 150 U/L (73-393); Potassium 4.2 mmol/L (3.5-5.1); Protein, Total 6.5 g/dL (6.4-8.2); Sodium Level 138 mmol/L (136-145); Troponin-I HS 6 pg/mL (3.0-78.0)
[2022-04-20 10:25] VITALS: BP 116/71; PULSE 83; RESP 16; TEMP 35.3; O2SAT 97
[2022-04-20 10:30] VITALS: BP 116/71; PULSE 83; RESP 16; TEMP 35.3; O2SAT 97
[2022-04-20] MEDS: Acetaminophen 500 MG Tablet 1000 MG PO (10:46)
== END 2022-04-20 10:50 | disposition home or self-care (01) ==
PROVIDERS: Emergency Provider Emergency Medicine; Visit Provider Emergency Medicine
DX: R07.89 Other chest pain (principal); R06.02 Shortness of breath; F17.210 Nicotine dependence, cigarettes, uncomplicated; K02.9 Dental caries, unspecified; I44.7 Left bundle-branch block, unspecified; H00.014 Hordeolum externum left upper eyelid; Z79.899 Other long term (current) drug therapy; R10.12 Left upper quadrant pain; S02.5XXA Fracture of tooth (traumatic), initial encounter for closed fracture; Z79.82 Long term (current) use of aspirin; Z79.1 Long term (current) use of non-steroidal anti-inflammatories (NSAID)
CPT/HCPCS: 71045; 80053; 83690; 84484; 85025; 93005; 94640; 96374; 99284; A4216

== ENCOUNTER 2022-04-27 09:33 | Emergency (ER) | payer MEDICARE, MEDICAID, SELFPAY ==
[2022-04-27 09:35] VITALS: BP 145/94; PULSE 105; RESP 20; TEMP 36.6; O2SAT 98; BMI 24.0
--- NOTE | 2022-04-27 10:19 | EDS_ITS ---
HPI HPI - GI History of Present Illness Chief Complaint: Abd Pain Abdominal Pain/Flank Pain Onset: Weeks (2) Context: Gradual Onset Timing: Continuous Quality: Stabbing Location: LUQ Worsened by: Food and - (Naprosyn) Relieved by: - (Bowel movement) Nausea/Vomiting/Emesis GI Symptom: Positive for Nausea and Vomiting Quality: Negative for Blood streaks, Coffee ground or Hematemesis Diarrhea/Melena/Hematochezia GI Symptom: Positive for Diarrhea; Negative for Melena or Hematochezia Associated Symptoms Associated Symptoms: Positive for Dysuria Narrative Narrative: Patient presents with abdominal pain that has been constant for the last 2 weeks. Patient describes it as stabbing. Patient states it is mainly in the left upper quadrant. Patient states it has been constant for the last 2 weeks. Patient is states it is worse after he eats. Patient states it is also worse whenever he takes his Naprosyn. Patient states that having a bowel movement seems to help at times. Patient admits to some nausea and vomiting. Patient denies any hematemesis or coffee-ground emesis. Patient admits to some diarrhea but denies any melena or hematochezia. Patient also admits to some dysuria. PFSH PFSH Medical History Chronic dyspnea Smoker Home Medications naproxen 500 mg tablet (Naprosyn) 500 mg PO BID PRN pain #30 tabs 04/05/22 [Rx Last Taken Unknown] albuterol sulfate 90 mcg/actuation aerosol inhaler (Proventil HFA) 2 puff inhalation Q6H PRN shortness of breath or wheezing #8.5 grams 04/20/22 [Rx Last Taken Unknown] penicillin V potassium 500 mg tablet 500 mg PO 4X/DAY #40 tabs 04/20/22 [Rx Last Taken Unknown] prednisone 10 mg tablet 60 mg PO DAILY 4 days #24 tabs 04/20/22 [Rx Last Taken Unknown] omeprazole 20 mg capsule,delayed release 20 mg PO DAILY #30 CAPSULES 04/27/22 [Rx Last Taken Unknown] tramadol 50 mg tablet 50 mg PO QHS PRN PRN Pain 3 days #3 tabs 04/27/22 [Rx Last Taken Unknown] Allergy/AdvReac Type Severity Reaction Status Date / Time No Known Allergies Allergy Verified 04/27/22 09:38 Social History Smoking Status: Current every day smoker tobacco type: cigarettes substance use type: does not use ROS ROS ED Constitutional Constitutional ED: Reports chills, fever(s), subjective and sweats Eyes Eyes: Denies blurry vision or change in vision ENT ENT ED: Reports sore throat; Denies rhinorrhea Cardiovascular Cardiovascular: Denies chest pain or palpitations Respiratory/Chest Respiratory/Chest: Denies cough or dyspnea Gastrointestinal Gastrointestinal: Reports abdominal pain, diarrhea, nausea and vomiting Genitourinary Genitourinary ED: Denies dysuria or hematuria Musculoskeletal Musculoskeletal: Reports back pain; Denies neck pain Integumentary Denies abscess or rash Neurologic Neurologic: Reports headache(s); Denies weakness Allergic/Immunologic Allergic/Immunologic ED: Denies mouth swelling or urticaria EXAM Physical Exam Const Vital Signs: 04/27/22 09:35 04/27/22 12:16 Temperature 97.9 F Temperature Source Temporal Pulse Rate 105 H 71 Respiratory Rate 20 H 16 Blood Pressure 145/94 H 140/93 H Blood Pressure Mean 111 108 Pulse Ox 98 94 Oxygen Delivery Method Room Air Positive well nourished and well developed General Appearance ED: well developed and NAD HEENT Reports moist mucous membranes Eyes Eyes Narrative: There is a stye noted to the left upper eyelid. There is no active discharge or drainage. Neck supple and no JVD Resp normal respiratory effort and clear to auscultation bilaterally Cardio regular rate, regular rhythm and no murmurs GI normal to inspection, nondistended, normoactive bowel sounds Palpation: soft and tender epigastric and LUQ Extremity normal to inspection General Extremety ED: Negative for edema or tenderness General Extremity: Negative for edema Neuro oriented x3, CN's II-XII intact bilaterally and no sensory deficits noted Sensorium / Orientation: alert Motor Exam: strength 5/5 throughout Psych Attitude: bizarre Speech: excessive and rapid Mood & Affect: elevated mood and labile affect Skin no rashes or lesions noted MDM MDM MDM Narrative Medical decision making narrative: Patient was given IV fluids, morphine, and Zofran here. CBC was within normal limits. Comprehensive metabolic profile was essentially within normal limits. Lipase was normal. Patient is feeling better on reevaluation. Patient was advised of his findings. Patient was instructed to follow-up with a primary care physician in 5 to 7 days. Patient was given a prescription for omeprazole. Patient was also given a prescription for tramadol to take at bedtime as needed for pain. Patient was instructed to return if worse in any way. Patient un derstood and was agreeable with the plan. All questions were answered. Lab Data Attestation: I reviewed the patient's lab results. Labs: Laboratory Results - last 24 hr 04/27/22 04/27/22 10:40 10:40 WBC 9.0 RBC 5.34 Hgb 17.5 H Hct 50.2 MCV 94.0 MCH 32.8 H MCHC 34.9 RDW Std Deviation 47.8 H RDW Coeff of Manuel 13.7 Plt Count 195 MPV 10.1 Immature Gran % (Auto) 0.400 Neut % (Auto) 48.7 Lymph % (Auto) 35.1 [place] % (Auto) 11.6 H Eos % (Auto) 3.8 Baso % (Auto) 0.4 Absolute Neuts (auto) 4.4 Absolute Lymphs (auto) 3.17 Nucleated RBC % 0 Sodium 138 Potassium 4.3 Chloride 109 H Carbon Dioxide 24.0 Anion Gap 5 BUN 14 Creatinine 0.86 Estim Creat Clear Calc 102.57 Est GFR (MDRD) Af Amer 119 Est GFR (MDRD) Non-Af 98 BUN/Creatinine Ratio 16.2 Glucose 100 Calcium 8.6 Total Bilirubin 0.70 AST 13 L ALT 26 Alkaline Phosphatase 61 Total Protein 6.8 Albumin 3.2 Globulin 3.6 Albumin/Globulin Ratio 0.9 Lipase 154 Discharge Plan Triage Chief Complaint: Abd Pain ED Provider: Manuel James Dx/Rx/DC Orders Clinical Impression: Abdominal pain Instructions: ED Abdominal Pain Unkn Cause Male... Prescriptions: New tramadol 50 mg tablet 50 mg PO QHS PRN PRN (Reason: Pain) 3 Days Qty: 3 0RF omeprazole [omeprazole] 20 mg capsule,delayed release(DR/EC) 20 mg PO DAILY Qty: 30 0RF No Action naproxen [Naprosyn] 500 mg tablet 500 mg PO BID PRN (Reason: pain) Qty: 30 0RF albuterol sulfate [Proventil HFA] 90 mcg/actuation HFA aerosol inhaler 2 puff inhalation Q6H PRN (Reason: shortness of breath or wheezing) Qty: 8.5 1RF prednisone 10 mg tablet 60 mg PO DAILY 4 Days Qty: 24 0RF penicillin V potassium 500 mg tablet 500 mg PO 4X/DAY Qty: 40 0RF Primary Care Provider: Care Physician,No Primary Referrals: Adriana Lyn [Non-Staff] - 3-5 Days Care Physician,No Primary [Primary Care Provider] - Disposition Disposition: Home, Self Care
[2022-04-27] MEDS: 0.9% Normal Saline 1,000 ML 1000 ML IV (10:40)
[2022-04-27] MEDS: Morphine 4 MG/ML Syringe IV (10:40)
[2022-04-27] MEDS: Ondansetron 4 MG/2 ML Vial IV (10:40)
[2022-04-27 10:58] LABS: Absolute Lymphocyte Count 3.17 X10^3/uL (0.83-4.51); Absolute Neutrophil Count 4.4 X10^3/uL (2.0-7.7); Basophil# 0.04 X10^3/uL; Basophil% 0.4 % (0-1); Eosinophil# 0.34 X10^3/uL; Eosinophils% 3.8 % (0-5); Hematocrit 50.2 % (40-54); Hemoglobin 17.5 g/dL (13.0-16.5); Lymphocyte # 3.17 X10^3/ul (0.83-4.51); Lymphocyte % 35.1 % (19-41); Mean Corp Hgb Conc 34.9 g/dL (32-36); Mean Corpuscular Hgb 32.8 pg (27.0-32.0); Mean Platelet Vol. 10.1 fl (6.2-12.0); Monocyte# 1.05 X10^3/uL; Monocyte% 11.6 % (0-10); NRBC Flagged by Analyzer 0 % (0-5); Neutrophil # 4.39 X10^3/uL (2.7-7.7); Neutrophil % 48.7 % (47-70); Platelet Count 195 K/mm3 (150-450); RBC Distribution Width CV 13.7 % (11.6-14.6); RBC Distribution Width SD 47.8 fl (35.1-43.9); Red Blood Count 5.34 M/mm3 (4.6-6.2)
[2022-04-27 11:08] LABS: ALB/GLOB Ratio 0.9 RATIO (0.9-2.4); AST(SGOT) 13 U/L (15-37); Alanine Aminotransfer ALT/SGPT 26 U/L (16-61); Albumin, Serum 3.2 g/dL (3.2-5.0); Alkaline Phosphatase 61 U/L (45-117); Anion Gap 5 (5-15); BUN 14 mg/dL (7-18); BUN/Creat Ratio 16.2 RATIO (10-20); Calcium,Total 8.6 mg/dL (8.5-10.1); Chloride 109 mmol/L (98-107); Creatinine, Serum 0.86 mg/dL (0.70-1.30); EST Glomerular Filtration Rate 98 mL/min (>60); Est Glom Filt Rate - Afr Amer 119 mL/min (>60); Estimated Creatinine Clearance 102.57 ml/min; Globulin 3.6 g/dL (2.2-4.2); Glucose 100 mg/dL (74-106); Lipase 154 U/L (73-393); Potassium 4.3 mmol/L (3.5-5.1); Protein, Total 6.8 g/dL (6.4-8.2); Sodium Level 138 mmol/L (136-145)
[2022-04-27 12:16] VITALS: BP 140/93; PULSE 71; RESP 16; O2SAT 94
--- NOTE | 2022-04-27 12:55 | ED.RN ---
Patient left ER, but came back. Discharge instructions and 2 new Rx reviewed with patient. Patient had pulled IV prior to arrival. After patient discharged patient's medications (prednisone and an antibiotic were left in the room.
== END 2022-04-27 12:57 | disposition home or self-care (01) ==
PROVIDERS: Emergency Provider Emergency Medicine; Visit Provider Emergency Medicine
DX: R10.9 Unspecified abdominal pain (principal); R11.2 Nausea with vomiting, unspecified; H00.014 Hordeolum externum left upper eyelid; R19.7 Diarrhea, unspecified; R30.0 Dysuria; F17.210 Nicotine dependence, cigarettes, uncomplicated
CPT/HCPCS: 80053; 83690; 85025; 96361; 96374; 96375; 99282; J7030; A4216; J2405

== ENCOUNTER 2022-04-30 06:04 | Emergency (ER) | payer MEDICARE, MEDICAID, SELFPAY ==
[2022-04-30 06:05] VITALS: BP 140/109; PULSE 98; RESP 22; TEMP 35.7; O2SAT 96; BMI 11.4
--- NOTE | 2022-04-30 06:17 | EX.ED.DYSGE1 ---
HPI History of Present Illness Chief Complaint: Abd Pain Informant: patient Onset/Context/Timing Onset: Days (10 days) Current Severity: Moderate Maximum Severity: Moderate Narrative Narrative: Patient presents complaining of upper abdominal pain for the past 10 days. He points to the epigastric region and around the left upper quadrant. He reports no vomiting or diarrhea. Patient was seen here for the same on April 27. He had lab work at that time was unremarkable. He was given a prescription for 3 tabs of tramadol, 1 to take each night at bedtime to help with pain. He was also given a prescription for omeprazole. He states that he went to the [facility] for follow-up and they have an appointment to see him on the . He presents back to the emergency room early this morning with complaints of pain and states he needs more pain medicine. PFSH PFS Medical History Chronic dyspnea Smoker Home Medications naproxen 500 mg tablet (Naprosyn) 500 mg PO BID PRN pain #30 tabs 04/05/22 [Rx Last Taken Unknown] albuterol sulfate 90 mcg/actuation aerosol inhaler (Proventil HFA) 2 puff inhalation Q6H PRN shortness of breath or wheezing #8.5 grams 04/20/22 [Rx Last Taken Unknown] penicillin V potassium 500 mg tablet 500 mg PO 4X/DAY #40 tabs 04/20/22 [Rx Last Taken Unknown] prednisone 10 mg tablet 60 mg PO DAILY 4 days #24 tabs 04/20/22 [Rx Last Taken Unknown] omeprazole 20 mg capsule,delayed release 20 mg PO DAILY #30 CAPSULES 04/27/22 [Rx Last Taken Unknown] tramadol 50 mg tablet 50 mg PO QHS PRN PRN Pain 3 days #3 tabs 04/27/22 [Rx Last Taken Unknown] Allergy/AdvReac Type Severity Reaction Status Date / Time No Known Allergies Allergy Verified 04/27/22 09:38 Surgical History H/O hernia repair Social History Smoking Status: Current every day smoker tobacco type: cigarettes substance use type: does not use ROS ROS ED Constitutional Constitutional ED: Denies chills or fever(s) Eyes Eyes: Denies change in vision ENT ENT ED: Denies rhinorrhea or sore throat Cardiovascular Cardiovascular: Denies chest pain or palpitations Respiratory/Chest Respiratory/Chest: Denies cough or dyspnea Gastrointestinal Gastrointestinal: Reports abdominal pain; Denies diarrhea or vomiting Genitourinary Genitourinary ED: Denies dysuria Musculoskeletal Musculoskeletal: Denies back pain or extremity pain Integumentary Denies Abrasions or rash Neurologic Neurologic: Denies headache(s) or weakness Allergic/Immunologic Allergic/Immunologic ED: Denies lip swelling or urticaria EXAM Physical Exam Const Vital Signs: 04/30/22 06:05 Temperature 96.3 F L Temperature Source Temporal Pulse Rate 98 Respiratory Rate 22 H Blood Pressure 140/109 H Blood Pressure Mean 119 Pulse Ox 96 Oxygen Delivery Method Room Air Positive well nourished and well developed General Appearance ED: well developed HEENT Reports normocephalic and head/scalp atraumatic Eyes PERRL and EOMs intact bilaterally Neck supple Chest Wall inspection of chest normal and palpation of chest normal Resp normal respiratory effort and clear to auscultation bilaterally Cardio regular rate and regular rhythm GI GI Narrative: Tenderness to palpation over the epigastrium. Active bowel sounds are noted. No guarding or rebound. Palpation: soft Extremity normal to inspection Neuro oriented x3 and no sensory deficits noted Sensorium / Orientation: alert Motor Exam: strength 5/5 throughout Psych mental status grossly normal Skin no rashes or lesions noted MDM MDM MDM Narrative Medical decision making narrative: I reviewed the patient's most recent work-up. At that time he had lab work that was all unremarkable. I offered to repeat the patient's lab work and obtain a CT scan to look for any obvious abnormalities. I advised him that with a negative work-up recently I would not provide any narcotic pain medication for him unless he had an abnormal finding on today's work-up. Patient became upset with this and stated that he was going to leave the emergency room and come back when he was in pain. Of note there are nursing notes on several prior visits where patient became upset and left prior to treatment completion only to return and what his pain medication. Discharge Plan Triage Chief Complaint: Abd Pain ED Provider: Yeni Pollard Dx/Rx/DC Orders Clinical Impression: Abdominal pain Prescriptions: No Action naproxen [Naprosyn] 500 mg tablet 500 mg PO BID PRN (Reason: pain) Qty: 30 0RF albuterol sulfate [Proventil HFA] 90 mcg/actuation HFA aerosol inhaler 2 puff inhalation Q6H PRN (Reason: shortness of breath or wheezing) Qty: 8.5 1RF prednisone 10 mg tablet 60 mg PO DAILY 4 Days Qty: 24 0RF penicillin V potassium 500 mg tablet 500 mg PO 4X/DAY Qty: 40 0RF tramadol 50 mg tablet 50 mg PO QHS PRN PRN (Reason: Pain) 3 Days Qty: 3 0RF omeprazole [omeprazole] 20 mg capsule,delayed release(DR/EC) 20 mg PO DAILY Qty: 30 0RF Primary Care Provider: Care Physician,No Primary Referrals: Care Physician,No Primary [Primary Care Provider] - Disposition Disposition: Home, Self Care
--- NOTE | 2022-04-30 06:23 | ED.RN ---
patient left after being told he will not be getting narcotics, Dr Pollard offered the patient Tylenol. Pt got upset and left the department.
== END 2022-04-30 06:26 | disposition home or self-care (01) ==
PROVIDERS: Emergency Provider Emergency Medicine; Visit Provider Emergency Medicine
DX: R10.13 Epigastric pain (principal); R10.12 Left upper quadrant pain; Z79.1 Long term (current) use of non-steroidal anti-inflammatories (NSAID); Z79.52 Long term (current) use of systemic steroids; F17.210 Nicotine dependence, cigarettes, uncomplicated
CPT/HCPCS: 99282

== ENCOUNTER 2022-04-30 12:27 | Emergency (ER) | payer MEDICARE, MEDICAID, SELFPAY ==
[2022-04-30 12:29] VITALS: BP 133/94; PULSE 102; RESP 20; TEMP 36.8; O2SAT 95; BMI 24.0
[2022-04-30 15:05] VITALS: O2SAT 95
--- NOTE | 2022-04-30 15:14 | EDS_ITS ---
HPI History of Present Illness Chief Complaint: Shortness of Breath Informant: patient Narrative Narrative: Patient's registered his shortness of breath. However, he denies that. He states sometimes he gets short of breath. He might have asthma. He has an inha ler that he does not use. He states when they gave him morphine the other day it really helped his breathing but he is not having breathing problems now. Patient is complaining primarily of epigastric pain. Its been going on for probably at least 2 weeks. He was started on omeprazole after his visit the other day. He states it helps but he still gets sharp pains in his upper abdomen at times. He states he has had reflux for 15 years but he just deals with it. He also had a recent dental infection. He was on antibiotics and Naprosyn prior to all this starting. He states the tooth is better. He also has a stye above his left eye. It is already draining and improving. Patient is requesting more tramadol because that helped his pain. He states if he does not get tramadol now he will be back this evening asking for tramadol. He did not mention that he was here this morning asking for tramadol. He has followed up with his primary physician and has an appointment later this month. Sounds like patient has never had an EGD. Patient is still eating and drinking. No vomiting. No change in stool. No black or bloody stools. No fevers. The omeprazole makes his pain better. No thing seems to make it worse. PFSH PFSH Medical History Chronic dyspnea Smoker Home Medications albuterol sulfate 90 mcg/actuation aerosol inhaler (Proventil HFA) 2 puff inhalation Q6H PRN shortness of breath or wheezing #8.5 grams 04/20/22 [Rx Last Taken Unknown] omeprazole 20 mg capsule,delayed release 20 mg PO DAILY #30 CAPSULES 04/27/22 [Rx Last Taken Unknown] tramadol 50 mg tablet 50 mg PO QHS PRN PRN Pain 3 days #3 tabs 04/27/22 [Rx Last Taken Unknown] Allergy/AdvReac Type Severity Reaction Status Date / Time No Known Allergies Allergy Verified 04/30/22 12:29 Surgical History H/O hernia repair Social History Smoking Status: Current every day smoker tobacco type: cigarettes substance use type: does not use ROS ROS ED Constitutional Constitutional ED: Denies chills, fever(s) or subjective Eyes Eyes: Denies change in vision ENT ENT ED: Denies rhinorrhea or sore throat Cardiovascular Cardiovascular: Denies chest pain, palpitations or racing heartbeat Respiratory/Chest Respiratory/Chest: Reports other Details: Patient evidently has chronic dyspnea but is not having it now. He states is mostly when he walks around and he will start wheezing. He is a smoker. ; Denies cough or sputum Gastrointestinal Gastrointestinal: Reports abdominal pain; Denies constipation, diarrhea, melena, nausea or vomiting Genitourinary Genitourinary ED: Denies dysuria Musculoskeletal Musculoskeletal: Denies arthralgias or myalgias Integumentary Denies rash Neurologic Neurologic: Denies headache(s) Endocrine Endocrinology: Denies polydipsia or polyuria Hematologic/Lymphatic Hematologic/Lymphatic: Denies easy bleeding or easy bruising Allergic/Immunologic Allergic/Immunologic ED: Denies urticaria EXAM Physical Exam Const Vital Signs: 04/30/22 12:29 04/30/22 15:05 Temperature 98.2 F Temperature Source Temporal Pulse Rate 102 H Respiratory Rate 20 H Respiratory Effort Normal Non-Labored Respiratory Depth Normal Respiratory Pattern Normal Blood Pressure 133/94 H Blood Pressure Mean 107 Pulse Ox 95 Oxygen Delivery Method Room Air Room Air Positive well nourished and well developed Constitutional Narrative: Patient has no indication of dyspnea. He carries on a conversation with very fast talking continuously. Nontoxic. General Appearance ED: well developed and NAD HEENT Reports moist mucous membranes; Denies dry mucous membranes Mouth ED: No dry mucous membranes Mouth: No dry mucous membranes Eyes General Eye ED: Negative for scleral icterus Neck no JVD Chest Wall inspection of chest normal and palpation of chest normal Resp normal respiratory effort and clear to auscultation bilaterally Resp Narrative: No pain with a deep breath Auscultation: Negative for rales, rhonchi or wheezes Cardio regular rate and regular rhythm GI normal to inspection, nondistended, normoactive bowel sounds and non-tender GI Narrative: Abdomen is quite benign. I get no tenderness. Bowel sounds are normal Back/Spine no CVA tenderness Extremity normal to inspection Neuro oriented x3 Sensorium / Orientation: alert Psych mental status grossly normal Skin no rashes or lesions noted MDM MDM MDM Narrative Medical decision making narrative: I talked to the patient. I explained that I would look at his blood work that was done recently. I would look at any imaging done recently. He states he just needs his tramadol. I explained that before I would prescribe this I need to do evaluation and look up what they have done to see if further imaging is needed. I explained that if he cannot function without having pain medicine because his abdomen is so painful, we should do further work-up and I encouraged getting a CAT scan this time. He stated he was okay with that. During the process of dictation evidently he got up and walked out of the department. Discharge Plan Triage Chief Complaint: Shortness of Breath ED Provider: Chriss Hanna Dx/Rx/DC Orders Clinical Impression: Abdominal pain, Eloped from emergency department Prescriptions: No Action albuterol sulfate [Proventil HFA] 90 mcg/actuation HFA aerosol inhaler 2 puff inhalation Q6H PRN (Reason: shortness of breath or wheezing) Qty: 8.5 1RF tramadol 50 mg tablet 50 mg PO QHS PRN PRN (Reason: Pain) 3 Days Qty: 3 0RF omeprazole [omeprazole] 20 mg capsule,delayed release(DR/EC) 20 mg PO DAILY Qty: 30 0RF Primary Care Provider: Care Physician,No Primary Referrals: Care Physician,No Primary [Primary Care Provider] - Disposition Disposition: Elopement
== END 2022-04-30 15:20 | disposition left against medical advice (07) ==
PROVIDERS: Emergency Provider Emergency Medicine; Visit Provider Emergency Medicine
DX: R10.13 Epigastric pain (principal); H00.014 Hordeolum externum left upper eyelid; K21.9 Gastro-esophageal reflux disease without esophagitis; F17.210 Nicotine dependence, cigarettes, uncomplicated; R10.12 Left upper quadrant pain; Z79.899 Other long term (current) drug therapy
CPT/HCPCS: 99282

== ENCOUNTER 2022-07-08 16:32 | Emergency (ER) | payer MEDICARE, MEDICAID, SELFPAY ==
[2022-07-08 16:34] VITALS: BP 137/80; PULSE 105; RESP 18; TEMP 36.7; O2SAT 93; BMI 26.5
--- NOTE | 2022-07-08 19:59 | ED.RN ---
[id number]
== END 2022-07-08 19:00 | disposition left against medical advice (07) ==
LOC: ED 20:04
DX: R06.02 Shortness of breath (principal); Z53.21 Procedure and treatment not carried out due to patient leaving prior to being seen by health care provider

== ENCOUNTER 2022-07-27 09:33 | Emergency (ER) | payer MEDICARE, MEDICAID, SELFPAY ==
[2022-07-27 09:34] VITALS: BP 130/94; PULSE 96; RESP 18; TEMP 36.4; O2SAT 98; BMI 24.3
--- NOTE | 2022-07-27 10:17 | ED.VIS.LOWEX ---
HPI History of Present Illness HPI Narrative: Homeless and thinks he has frostbite. Chief Complaint: Lower Extremity Injury Informant: patient Occured/Mechanism Mechanism/Context: No assault, No burn and No bicycle crash Onset/Context/Timing Onset: Days Context: Gradual Onset Timing: Continuous Quality of Pain: Dull and Aching Current Severity: Mild Maximum Severity: Mild Associated Symptoms Associated Symptoms: Positive for Parasthesia; Negative for Weakness or Loss of Funtion Narrative Narrative: Been 1-year-old male history of COPD. He is homeless living in his car. Said he had prior frostbite in 2017. States recently has had trouble with his car so he has not been able to let it run all night and he said the cold nights he thinks he has frostbite in his feet. Prior similar symptoms: Yes Recent Illness/Hospitalization: No PFSH PFSH Medical History Chronic dyspnea Smoker Home Medications albuterol sulfate 90 mcg/actuation aerosol inhaler (Proventil HFA) 2 puff inhalation Q6H PRN shortness of breath or wheezing #8.5 grams 04/20/22 [Rx Last Taken Unknown] ibuprofen 200 mg capsule (Advil Liqui-Gel) 400 mg PO Q6H PRN Pain 07/27/22 [History Last Taken Unknown] Allergy/AdvReac Type Severity Reaction Status Date / Time No Known Allergies Allergy Verified 04/30/22 12:29 Surgical History H/O hernia repair Social History Smoking Status: Current every day smoker tobacco type: cigarettes substance use type: does not use ROS ROS ED ROS Narrative Denies recent illness. Review of Systems ROS Unobtainable: Denies due to encephalopathy Constitutional Constitutional ED: Denies chills or fever(s) Eyes Eyes: Denies blurry vision ENT ENT ED: Denies ear pain Cardiovascular Cardiovascular: Denies chest pain or palpitations Respiratory/Chest Respiratory/Chest: Denies cough or dyspnea Gastrointestinal Gastrointestinal: Denies abdominal pain Genitourinary Genitourinary ED: Denies dysuria or hematuria Musculoskeletal Musculoskeletal: Denies arthralgias Integumentary Denies abscess or Abrasions Neurologic Neurologic: Denies headache(s) Psychiatric Psychiatric: Denies anxiety Endocrine Endocrinology: Denies polydipsia Hematologic/Lymphatic Hematologic/Lymphatic: Denies easy bleeding or easy bruising Allergic/Immunologic Allergic/Immunologic ED: Denies mouth swelling or tongue swelling EXAM Physical Exam Narrative Exam Narrative: 51-year-old male no acute distress. Vital signs stable afebrile. H EENT exam unremarkable poor dentition. Moist mucous membranes. Neck nontender no JVD. No lymphadenopathy. Lungs clear to auscultation bilaterally. Heart regular rhythm rate in 90s no murmur. Abdomen soft nontender. Moving all 4 extremities. Feet cool to the touch. Palpable DP pulses. Tender to his toes. Early signs of frostbite. No cellulitis. Minimal redness no discoloration otherwise. Const Vital Signs: 07/27/22 09:34 Temperature 97.5 F L Temperature Source Temporal Pulse Rate 96 Respiratory Rate 18 Blood Pressure 130/94 H Blood Pressure Mean 106 Pulse Ox 98 Oxygen Delivery Method Room Air Positive well nourished, well developed and unkempt; Negative for obese, cachectic or contractures General Appearance ED: unkempt, well developed and NAD; Negative for cachectic or contractures Nutritional Appearance: Negative for cachectic or obese HEENT Reports moist mucous membranes normocephalic and atraumatic; Negative for trauma or tenderness Eyes PERRL General Eye ED: Negative for other Neck full ROM and supple Thyroid: Negative for tender Lymph Lymphatic: Negative for other Chest Wall inspection of chest normal Chest: Negative for other Resp normal respiratory effort, no retractions and clear to auscultation bilaterally Effort and Inspection: Negative for pain with movement Auscultation: Negative for rales, rhonchi or wheezes Cardio regular rate, regular rhythm, S1 normal heart sound, S2 normal heart sound and no murmurs Rate: Negative for bradycardia or tachycardic Rhythm: Negative for abnormal rhythm Bruits: Negative for other GI non-tender, non-distended and no masses Inspection: Negative for abdominal distention Auscultation: normoactive bowel sounds Palpation: soft; Negative for tender or guarding Back/Spine no CVA tenderness General Back: Negative for CVA tenderness Cervical Spine: Negative for cervical spine tenderness Thoracic Spine / Upper Back: Negative for thoracic spinal tenderness Lumbar Spine / Lower Back: Negative for lumbar spinal tenderness Extremity full ROM; Negative for normal to inspection Extremity Narrative: Early signs of frostbite to his toes. Cool to the touch. Hyperemic. Minimal swelling. Normal DP pulses. General Extremety ED: Negative for cyanosis or edema General Extremity: Negative for cyanosis or edema Neuro oriented x3, CN's II-XII intact bilaterally, moves all extremities and No no sensory deficits noted Sensorium / Orientation: alert, oriented to person, oriented to place and oriented to time; Negative for orientation impaired, confused, lethargic or stuporous Motor Exam: strength 5/5 throughout Psych mental status grossly normal Appearance: unkempt Speech: No other Mood & Affect: Negative for anxious Skin no wounds Lesions: no lesions Rashes: no rashes Trauma: Negative for abrasion MDM MDM MDM Narrative Medical decision making narrative: Frostbite to his feet. Homeless. Unable to eat going to the shelters due to a problem in the past with a misdemeanor arson charge. Feet warming. He will be discharged with socks. Discharge Plan Triage Chief Complaint: Lower Extremity Injury ED Provider: Yimi Grant Dx/Rx/DC Orders Clinical Impression: Frostbite Instructions: ED Frostbite Prescriptions: No Action albuterol sulfate [Proventil HFA] 90 mcg/actuation HFA aerosol inhaler 2 puff inhalation Q6H PRN (Reason: shortness of breath or wheezing) Qty: 8.5 1RF ibuprofen [Advil Liqui-Gel] 200 mg Capsule 400 mg PO Q6H PRN (Reason: Pain) Primary Care Provider: Care Physician,No Primary Referrals: Adriana Lyn [Non-Staff] - As Needed Care Physician,No Primary [Primary Care Provider] - Activity Restrictions/Additional Instructions: Keep your feet warm and dry. Motrin and Tylenol for pain. [facility] Disposition Disposition: Home, Self Care
--- NOTE | 2022-07-27 10:36 | ED.RN ---
Pt. left without paperwork because he was told he would not be getting narcotics or free inhalers.
== END 2022-07-27 10:38 | disposition home or self-care (01) ==
PROVIDERS: Emergency Provider Emergency Medicine; Visit Provider Emergency Medicine
DX: T33.821A Superficial frostbite of right foot, initial encounter (principal); T33.822A Superficial frostbite of left foot, initial encounter; F17.210 Nicotine dependence, cigarettes, uncomplicated; Z59.00 Homelessness unspecified; X58.XXXA Exposure to other specified factors, initial encounter
CPT/HCPCS: 99282

== ENCOUNTER 2022-08-21 03:02 | Emergency (ER) | payer MEDICARE, MEDICAID, SELFPAY ==
[2022-08-21 03:03] VITALS: BP 141/97; PULSE 100; RESP 22; TEMP 36.6; O2SAT 95; BMI 23.7
--- NOTE | 2022-08-21 03:23 | RAD_ITS ---
EXAM: XR CHEST, 2 VIEWS CLINICAL INDICATION: dyspnea dyspnea TECHNIQUE: Frontal and lateral views of the chest. This report was created using [employer] report generation technology. COMPARISON: Chest x-ray 04/20/2022. FINDINGS: LUNGS AND PLEURAL SPACES: Lungs are mildly hyperexpanded, suggesting COPD. No pneumothorax. No effusion. HEART: Unremarkable. Cardiac silhouette not enlarged. MEDIASTINUM: Central airways and mediastinal contour are unremarkable. BONES/JOINTS: There are multilevel degenerative changes in the visualized spine. SOFT TISSUES: Unremarkable. RAD/Chest PA and Lateral IMPRESSION: 1. Hyperexpansion of the lungs, which may represent COPD. 2. No evidence for acute cardiopulmonary pathology. Electronically Signed: Valentin Rolon MD at 5:05 EST Reading Location ID and State: [facility] / [place] , Service support ,
--- NOTE | 2022-08-21 03:23 | EKG12_ITS ---
Test Reason : DYSRHYTHMIA Blood Pressure : / mmHG Vent. Rate : 101 BPM Atrial Rate : 101 BPM P-R Int : 136 ms QRS Dur : 138 ms QT Int : 418 ms P-R-T Axes : 084 -32 080 degrees QTc Int : 542 ms Sinus tachycardia Left axis deviation Left bundle branch block Abnormal ECG Confirmed by KATHLEEN PATINO, ROSINA ([id number]), editor trade journal PAUL DÍAZ ([id number]) on 08/25/2022 10:06:27 AM Referred By: AFTAB Confirmed By:DEMARCUS WANG MD
[2022-08-21 03:28] VITALS: PULSE 97; RESP 24
[2022-08-21] MEDS: Albuterol 2.5 MG/3 ML VIAL.NEB. INHALATION (03:28)
[2022-08-21] MEDS: Albuterol Sulfate 8 gm Inhaler (60 puffs) 2 PUFF INHALATION (03:32)
[2022-08-21 03:34] VITALS: O2SAT 95
[2022-08-21 03:39] LABS: Absolute Lymphocyte Count 2.57 X10^3/uL (0.83-4.51); Absolute Neutrophil Count 6.2 X10^3/uL (2.0-7.7); Basophil# 0.04 X10^3/uL; Basophil% 0.4 % (0-1); Eosinophil# 0.26 X10^3/uL; Eosinophils% 2.5 % (0-5); Hemoglobin 16.5 g/dL (13.0-16.5); Lymphocyte # 2.57 X10^3/ul (0.83-4.51); Lymphocyte % 24.8 % (19-41); Mean Corp Hgb Conc 33.7 g/dL (32-36); Mean Corpuscular Volume 95.1 fL (80-94); Mean Platelet Vol. 9.6 fl (6.2-12.0); Monocyte# 1.22 X10^3/uL; Monocyte% 11.8 % (0-10); NRBC Flagged by Analyzer 0 % (0-5); Neutrophil # 6.22 X10^3/uL (2.7-7.7); Platelet Count 255 K/mm3 (150-450); RBC Distribution Width CV 12.8 % (11.6-14.6); RBC Distribution Width SD 45.1 fl (35.1-43.9); Red Blood Count 5.15 M/mm3 (4.6-6.2); White Blood Count 10.4 K/mm3 (4.4-11.0)
[2022-08-21 04:01] LABS: Anion Gap 6 (5-15); BUN 10 mg/dL (7-18); BUN/Creat Ratio 12.8 RATIO (10-20); Calcium,Total 8.3 mg/dL (8.5-10.1); Chloride 110 mmol/L (98-107); Creatinine, Serum 0.78 mg/dL (0.70-1.30); EST Glomerular Filtration Rate 110 mL/min (>60); Est Glom Filt Rate - Afr Amer 133 mL/min (>60); Estimated Creatinine Clearance 116.65 ml/min; Glucose 91 mg/dL (74-106); Magnesium 2.6 mg/dL (1.6-2.6); Potassium 3.9 mmol/L (3.5-5.1); Sodium Level 139 mmol/L (136-145); Troponin-I HS 7 pg/mL (3.0-78.0)
[2022-08-21 05:00] VITALS: BP 137/78; PULSE 95; RESP 22; O2SAT 94
--- NOTE | 2022-08-21 05:18 | EX.ED.DYSGE1 ---
HPI History of Present Illness Chief Complaint: Shortness of Breath Narrative Narrative: Patient is a 51-year-old male with past medical history of COPD and tobacco abuse. He states he is out of his inhaler which he needs in order to live. He states over the past 24 hours she has been feeling increased shortness of breath and he has some left-sided chest pain. He states he is concerned that he may have pneumonia or low blood volume and as he does not have an inhaler as well presents to the ER for evaluation [facility] Medical History Chronic dyspnea Smoker Home Medications albuterol sulfate 90 mcg/actuation aerosol inhaler (Proventil HFA) 2 puff inhalation Q6H PRN shortness of breath or wheezing #8.5 grams 04/20/22 [Rx Last Taken Unknown] albuterol sulfate 90 mcg/actuation aerosol inhaler (Ventolin HFA) 1 - 2 puff inhalation Q4H PRN PRN Wheezing #1 device 08/21/22 [Rx Last Taken Unknown] Allergy/AdvReac Type Severity Reaction Status Date / Time No Known Allergies Allergy Verified 04/30/22 12:29 Surgical History H/O hernia repair Social History Smoking Status: Current every day smoker tobacco type: cigarettes substance use type: does not use ROS ROS ED Constitutional Constitutional ED: Denies chills or fever(s) ENT ENT ED: Denies sore throat Cardiovascular Cardiovascular: Reports chest pain; Denies palpitations or racing heartbeat Respiratory/Chest Respiratory/Chest: Reports cough and dyspnea Gastrointestinal Gastrointestinal: Denies abdominal pain, diarrhea, nausea or vomiting Genitourinary Genitourinary ED: Denies dysuria Musculoskeletal Musculoskeletal: Denies back pain or myalgias Integumentary Denies rash Neurologic Neurologic: Denies headache(s) Hematologic/Lymphatic Hematologic/Lymphatic: Denies easy bleeding or easy bruising EXAM Physical Exam Const Vital Signs: 08/21/22 03:03 08/21/22 03:34 08/21/22 03:28 Temperature 97.8 F Temperature Source Oral Pulse Rate 100 97 Respiratory Rate 22 H 24 H Respiratory Effort Short of Breath Respiratory Depth Normal Respiratory Pattern Tachypnea Tachypnea Blood Pressure 141/97 H Blood Pressure Mean 111 Pulse Ox 95 Oxygen Delivery Method Room Air Room Air 08/21/22 05:00 Temperature Temperature Source Pulse Rate 95 Respiratory Rate 22 H Respiratory Effort Respiratory Depth Respiratory Pattern Blood Pressure 137/78 H Blood Pressure Mean 97 Pulse Ox 94 Oxygen Delivery Method Room Air Positive well nourished and well developed General Appearance ED: well developed HEENT Reports moist mucous membranes HEENT Narrative: No tongue or lip swelling no oral lesions no airway edema or compromise Eyes PERRL and EOMs intact bilaterally Neck supple and no JVD Neck Narrative: No crepitance palpated Chest Wall palpation of chest normal Resp Resp Narrative: Patient has mild tachypnea but otherwise no nasal flaring retractions or accessory muscle use. Breath sounds are diminished throughout with faint expiratory wheeze consistent with history of COPD/smoking but no signs of acute respiratory distress Cardio regular rate and regular rhythm Extremity normal to inspection Extremity Narrative: No asymmetric edema no pitting edema negative Homans' sign bilaterally Neuro oriented x3 and CN's II-XII intact bilaterally Sensorium / Orientation: alert Psych Psych Narrative: Patient has a nervous/anxious affect Skin no rashes or lesions noted MDM MDM MDM Narrative Medical decision making narrative: Patient presented to the ER with mild increased work of breathing but satting in the mid 90s on room air. With his report of persistent shortness of breath I do like to perform a chest x-ray to rule out underlying pneumothorax or pneumonia. As he also had some left-sided chest discomfort a EKG and troponin were obtained as well. Blood work revealed no clinically significant findings and EKG was sinus rhythm. Chest x-ray revealed no acute lung pathology and after being given a albuterol nebulizer treatment patient had resolution of his symptoms. On reevaluation he is resting comfortably and able to sleep and remains in no acute distress with a stable pulse ox. Therefore this time there is no need for further work-up and patient is otherwise safe for discharge Lab Data Attestation: I reviewed the patient's lab results. Labs: Laboratory Results - last 24 hr 08/21/22 08/21/22 01:15 01:15 WBC 10.4 RBC 5.15 Hgb 16.5 Hct 49.0 MCV 95.1 H MCH 32.0 MCHC 33.7 RDW Std Deviation 45.1 H RDW Coeff of Manuel 12.8 Plt Count 255 MPV 9.6 Immature Gran % (Auto) 0.500 Neut % (Auto) 60.0 Lymph % (Auto) 24.8 [place] % (Auto) 11.8 H Eos % (Auto) 2.5 Baso % (Auto) 0.4 Absolute Neuts (auto) 6.2 Absolute Lymphs (auto) 2.57 Nucleated RBC % 0 Sodium 139 Potassium 3.9 Chloride 110 H Carbon Dioxide 23.0 Anion Gap 6 BUN 10 Creatinine 0.78 Estim Creat Clear Calc 116.65 Est GFR (MDRD) Af Amer 133 Est GFR (MDRD) Non-Af 110 BUN/Creatinine Ratio 12.8 Glucose 91 Calcium 8.3 L Magnesium 2.6 Troponin I High Sens 7 Radiography Diagnostic Testing: Clinical Impression(s) from Imaging Studies Chest X-Ray 08/21/22 03:23 IMPRESSION: 1. Hyperexpansion of the lungs, which may represent COPD. 2. No evidence for acute cardiopulmonary pathology. Electronically Signed: Valentin Rolon MD at 5:05 EST Reading Location ID and State: [facility] / [place] , Service support , Chest x-ray as interpreted by the emergency medicine physician reveals changes consistent with COPD but otherwise no acute infiltrate pneumothorax or pleural effusion Discharge Plan Triage Chief Complaint: Shortness of Breath ED Provider: Neo Watson Dx/Rx/DC Orders Clinical Impression: Acute exacerbation of chronic obstructive pulmonary disease, Tobacco dependence syndrome, Complete left bundle branch block (LBBB) Instructions: COPD: Wheezing and Chest Tightness Prescriptions: New albuterol sulfate [Ventolin HFA] 90 mcg/actuation HFA aerosol inhaler 1 - 2 puff inhalation Q4H PRN PRN (Reason: Wheezing) Qty: 1 3RF No Action albuterol sulfate [Proventil HFA] 90 mcg/actuation HFA aerosol inhaler 2 puff inhalation Q6H PRN (Reason: shortness of breath or wheezing) Qty: 8.5 1RF Primary Care Provider: Adriana Lyn Referrals: Adriana Lyn [Primary Care Provider] - Activity Restrictions/Additional Instructions: Please return to the ER should you have any further concerns Disposition Disposition: Home, Self Care
[2022-08-21 05:32] VITALS: BP 115/78; PULSE 87; RESP 16; O2SAT 93
== END 2022-08-21 05:35 | disposition home or self-care (01) ==
PROVIDERS: Emergency Provider Emergency Medicine; Visit Provider Emergency Medicine
DX: J44.1 Chronic obstructive pulmonary disease with (acute) exacerbation (principal); I44.7 Left bundle-branch block, unspecified; F17.210 Nicotine dependence, cigarettes, uncomplicated; Z79.899 Other long term (current) drug therapy
CPT/HCPCS: 71046; 80048; 83735; 84484; 85025; 93005; 94640; 99252; 99282; A4216; G0463

== ENCOUNTER 2022-10-03 15:11 | Emergency (ER) | payer MEDICARE, MEDICAID, SELFPAY ==
[2022-10-03 15:12] VITALS: BP 155/104; PULSE 88; RESP 14; TEMP 36.6; O2SAT 97; BMI 25.0
[2022-10-03] MEDS: Albuterol Sulfate 8 gm Inhaler (60 puffs) 2 PUFF INHALATION (21:04)
--- NOTE | 2022-10-03 21:23 | ED.VIS.DYS ---
HPI History of Present Illness Chief Complaint: Shortness of Breath Informant: patient Narrative Narrative: Reports out of his inhaler there for wheezing. Tobacco history. No diagnosed COPD. He uses an inhaler 6-8 times a day. He is followed by [facility]. Prior similar symptoms: Yes PFSH PFSH Medical History Chronic dyspnea Smoker Home Medications albuterol sulfate 90 mcg/actuation aerosol inhaler (Proventil HFA) 2 puff inhalation Q6H PRN shortness of breath or wheezing #8.5 grams 04/20/22 [Rx Last Taken Unknown] albuterol sulfate 90 mcg/actuation aerosol inhaler (Ventolin HFA) 1 - 2 puff inhalation Q4H PRN PRN Wheezing #1 device 08/21/22 [Rx Last Taken Unknown] Allergy/AdvReac Type Severity Reaction Status Date / Time No Known Allergies Allergy Verified 10/03/22 15:12 Surgical History H/O hernia repair Social History Smoking Status: Current every day smoker tobacco type: cigarettes substance use type: does not use ROS ROS ED Constitutional Constitutional ED: Denies chills, fever(s) or sweats Eyes Eyes: Denies change in vision ENT ENT ED: Denies dysphagia or sore throat Cardiovascular Cardiovascular: Denies chest pain, leg edema, palpitations or racing heartbeat Respiratory/Chest Respiratory/Chest: Reports dyspnea; Denies cough or dyspnea on exertion Gastrointestinal Gastrointestinal: Denies abdominal pain, diarrhea, nausea or vomiting Genitourinary Genitourinary ED: Denies dysuria, hematuria or urinary frequency Musculoskeletal Musculoskeletal: Denies back pain, extremity pain or neck pain Integumentary Denies rash or wounds Neurologic Neurologic: Denies headache(s), paresthesias or weakness EXAM Physical Exam Const Vital Signs: 10/03/22 15:12 10/03/22 20:37 Temperature 98 F Temperature Source Temporal Pulse Rate 88 Respiratory Rate 14 Respiratory Effort Short of Breath Respiratory Depth Normal Respiratory Pattern Tachypnea Blood Pressure 155/104 H Blood Pressure Mean 121 Pulse Ox 97 Oxygen Delivery Method Room Air Positive well nourished and well developed General Appearance ED: well developed and NAD HEENT Reports moist mucous membranes normocephalic and atraumatic Eyes PERRL, EOMs intact bilaterally and conjunctivae normal General Eye ED: Yes normal appearance of both eyes Neck no lymphadenopathy and supple General: Negative for tenderness Chest Wall Chest: Negative for tenderness Resp Resp Narrative: Upper airway wheezing Effort and Inspection: symmetric chest movement; Negative for respiratory distress Cardio regular rate, regular rhythm and no murmurs Peripheral Pulses: pulses 2+ throughout GI normal to inspection, nondistended, normoactive bowel sounds and non-tender Palpation: Negative for guarding or rebound tenderness present Back/Spine no CVA tenderness and no thoracic nor lumbar tenderness Extremity normal to inspection General Extremety ED: Negative for edema or tenderness General Extremity: Negative for edema Neuro oriented x3 and no sensory deficits noted Sensorium / Orientation: awake and alert Skin no rashes or lesions noted and no wounds MDM MDM MDM Narrative Medical decision making narrative: Interventions / MDM: Differential diagnosis: Bronchospasms, tobacco dependence Diagnosis considered but do not suspect: Pneumothorax however bilateral breath sounds My EKG interpretation: N/A Imaging independently reviewed and interpreted by myself: N/A External documents reviewed: N/A Test considered but not ordered:N/A ED course: Patient upper airway wheezing, tobacco history. He is out of his inhaler. He uses a 6-8 times a day. Provided him inhaler in the ED he used this monitor and improvement of symptoms. Discussed tobacco cessation with the patient. Discussed following with his primary doctor for long-acting inhaler since he uses 6-8 times a day. He understands this. Outpatient follow-up. All questions were answered. Re-evaluation: stable Disposition discussed with patient/family/significant other: Patient Case discussed with consulting clinician: N/A Discharge Plan Triage Chief Complaint: Shortness of Breath ED Provider: Alden Ferrari Dx/Rx/DC Orders Clinical Impression: Acute bronchospasm, Tobacco dependence syndrome Instructions: Smoking Get Help to Quit, ED Bronchospasm (Adult) Prescriptions: No Action albuterol sulfate [Proventil HFA] 90 mcg/actuation HFA aerosol inhaler 2 puff inhalation Q6H PRN (Reason: shortness of breath or wheezing) Qty: 8.5 1RF albuterol sulfate [Ventolin HFA] 90 mcg/actuation HFA aerosol inhaler 1 - 2 puff inhalation Q4H PRN PRN (Reason: Wheezing) Qty: 1 3RF Primary Care Provider: Adriana Lyn Referrals: Adriana Lyn [Primary Care Provider] - 1 Week Activity Restrictions/Additional Instructions: Discussed with your doctors for long-acting inhalers. Quit smoking. Disposition Disposition: Home, Self Care Discharge Date/Time: 10/03/22 21:33
== END 2022-10-03 21:33 | disposition home or self-care (01) ==
PROVIDERS: Emergency Provider Emergency Medicine; Visit Provider Emergency Medicine
DX: J98.01 Acute bronchospasm (principal); F17.210 Nicotine dependence, cigarettes, uncomplicated
CPT/HCPCS: 99282

== ENCOUNTER 2022-11-05 14:34 | Emergency (ER) | payer MEDICARE, MEDICAID, SELFPAY ==
[2022-11-05 14:35] VITALS: BP 124/93; PULSE 86; RESP 15; TEMP 35.9; O2SAT 97; BMI 25.1
--- NOTE | 2022-11-05 16:40 | RAD_ITS ---
STUDY: X-RAY CHEST REASON FOR EXAM: Male, 51 years old. Cough. TECHNIQUE: Single AP portable view of the chest. COMPARISON: August 21, 2022. FINDINGS: The lungs are clear and hyperexpanded. There is no demonstrated pleural abnormality. Normal size heart. Normal mediastinum and mary. Normal visualized pulmonary arteries. Normal visualized aortic arch and descending thoracic aorta. Mild degenerative changes of the visualized thoracic spine. There is degenerative osteoarthritis of the bilateral shoulders. There is no demonstrated abnormality of the visualized soft tissue structures of the upper abdomen. RAD/Chest 1 View (Portable) IMPRESSION: Degenerative changes, as described above. No demonstrated acute cardiopulmonary process. No major interval change. Electronically Signed: Oh Moeller DO at 17:00 EDT ,
[2022-11-05] MEDS: Ipratropium/Albuterol Sulfate 3 ML AMPUL.NEB INHALATION (18:05)
[2022-11-05 18:06] VITALS: PULSE 90; RESP 18
--- NOTE | 2022-11-05 18:22 | EX.ED.DYSGE1 ---
HPI History of Present Illness Chief Complaint: Cough Informant: patient Onset/Context/Timing Onset: Days (5) Context: Gradual Onset Timing: Continuous Quality: Wheezing Location: Chest Worsened by: At night Relieved by: Nothing Narrative Narrative: Patient presents with cough and chest congestion that has been getting worse over the last 5 days. Patient states it is gradually getting worse. Patient states he hears some wheezing in his chest. Patient states it is worse at night. Patient states nothing seems to help with it. Patient admits to some pain in his chest with coughing. Patient admits to some nausea and vomiting over the past couple days. Patient admits to some pain going into his neck and back as well. Patient denies any fevers or chills. Patient states he had a similar episode in the past and was given a prescription for an antibiotic which seemed to help. PFSH PFSH Medical History Chronic dyspnea Smoker Home Medications albuterol sulfate 90 mcg/actuation aerosol inhaler (Proventil HFA) 2 puff inhalation Q6H PRN shortness of breath or wheezing #8.5 grams 04/20/22 [Rx Last Taken Unknown] albuterol sulfate 90 mcg/actuation aerosol inhaler (Ventolin HFA) 1 - 2 puff inhalation Q4H PRN PRN Wheezing #1 device 08/21/22 [Rx Last Taken Unknown] Allergy/AdvReac Type Severity Reaction Status Date / Time No Known Allergies Allergy Verified 11/05/22 14:37 Surgical History H/O hernia repair Social History Smoking Status: Current every day smoker tobacco type: cigarettes substance use type: does not use ROS ROS ED Constitutional Constitutional ED: Denies chills or fever(s) Eyes Eyes: Denies blurry vision or change in vision ENT ENT ED: Denies rhinorrhea or sore throat Cardiovascular Cardiovascular: Reports chest pain; Denies palpitations Respiratory/Chest Respiratory/Chest: Reports cough; Denies dyspnea Gastrointestinal Gastrointestinal: Reports nausea and vomiting Genitourinary Genitourinary ED: Denies dysuria or hematuria Musculoskeletal Musculoskeletal: Reports back pain; Denies neck pain Integumentary Denies abscess or rash Neurologic Neurologic: Denies headache(s) or weakness Allergic/Immunologic Allergic/Immunologic ED: Denies mouth swelling or urticaria EXAM Physical Exam Const Vital Signs: 11/05/22 14:35 11/05/22 18:11 11/05/22 18:06 Temperature 96.7 F L Temperature Source Temporal Pulse Rate 86 90 Respiratory Rate 15 18 Respiratory Effort Normal Non-Labored Respiratory Depth Normal Respiratory Pattern Normal Normal Blood Pressure 124/93 H Blood Pressure Mean 103 Pulse Ox 97 Oxygen Delivery Method Room Air Room Air Positive well nourished, well developed and unkempt General Appearance ED: unkempt, well developed and NAD HEENT Reports moist mucous membranes Neck supple and no JVD Resp normal respiratory effort Auscultation: wheezes scattered wheezes Cardio regular rate, regular rhythm and no murmurs GI normal to inspection, nondistended, normoactive bowel sounds and non-tender Palpation: soft Extremity normal to inspection General Extremety ED: Negative for edema or tenderness General Extremity: Negative for edema Neuro oriented x3, CN's II-XII intact bilaterally and no sensory deficits noted Sensorium / Orientation: alert Motor Exam: strength 5/5 throughout Psych mental status grossly normal Appearance: unkempt Skin no rashes or lesions noted MDM MDM MDM Narrative Medical decision making narrative: Differential diagnosis includes viral upper respiratory infection, pneumonia, pneumothorax, COVID infection, and influenza infection. Chest x-ray will be obtained to assess for pneumonia and pneumothorax. COVID-19 rapid antigen will be obtained to assess for COVID infection. Influenza A and influenza B antigens will be obtained to assess for influenza infection. Lab Data Lab results narrative: COVID-19 rapid antigen was reviewed and was negative. Influenza A and influenza B rapid antigens were reviewed and were negative. Radiography Chest X-Ray - ED: 1 View, Read by ED Physician and Read by Radiologist Diagnostic Testing: Clinical Impression(s) from Imaging Studies Chest X-Ray 11/05/22 16:40 IMPRESSION: Degenerative changes, as described above. No demonstrated acute cardiopulmonary process. No major interval change. Electronically Signed: Oh Moeller DO at 17:00 EDT Reading Location ID and State: [address] [place] [address] Tel [phone], Service support , Portable 1 view chest x-ray was obtained. On my independent interpretation, lung torres are clear. There is normal cardiac silhouette. Bony thorax is normal. There is no acute process noted. Radiologist also interpreted the x-ray and agrees. Treatment and Re-Evaluation :: Patient was given a DuoNeb aerosol here. Patient did not want to wait for his results. Patient stated he needed to go out and get fresh air. Patient left prior to receiving his discharge instructions. Discharge Plan Triage Chief Complaint: Cough ED Provider: Manuel James Dx/Rx/DC Orders Clinical Impression: Viral URI, Tobacco dependence syndrome Prescriptions: No Action albuterol sulfate [Proventil HFA] 90 mcg/actuation HFA aerosol inhaler 2 puff inhalation Q6H PRN (Reason: shortness of breath or wheezing) Qty: 8.5 1RF albuterol sulfate [Ventolin HFA] 90 mcg/actuation HFA aerosol inhaler 1 - 2 puff inhalation Q4H PRN PRN (Reason: Wheezing) Qty: 1 3RF Primary Care Provider: Adriana Lyn Referrals: Adriana Lyn [Primary Care Provider] - Disposition Disposition: Elopement Discharge Date/Time: 11/05/22 19:05
== END 2022-11-05 19:05 | disposition left against medical advice (07) ==
LOC: ED 18:07
PROVIDERS: Emergency Provider Emergency Medicine; Visit Provider Emergency Medicine
DX: J06.9 Acute upper respiratory infection, unspecified (principal); R06.2 Wheezing; Z20.822 Contact with and (suspected) exposure to COVID-19; M54.9 Dorsalgia, unspecified; M54.2 Cervicalgia; R11.2 Nausea with vomiting, unspecified; F17.210 Nicotine dependence, cigarettes, uncomplicated
CPT/HCPCS: 71045; 87428; 94640; 99282

== ENCOUNTER 2022-11-09 10:43 | Emergency (ER) | payer MEDICARE, MEDICAID, SELFPAY ==
[2022-11-09 10:43] VITALS: BP 148/100; PULSE 91; RESP 18; TEMP 36.1; O2SAT 98; BMI 24.8
--- NOTE | 2022-11-09 11:09 | EKG12_ITS ---
Test Reason : BACK PAIN Blood Pressure : / mmHG Vent. Rate : 087 BPM Atrial Rate : 087 BPM P-R Int : 156 ms QRS Dur : 140 ms QT Int : 428 ms P-R-T Axes : 070 -59 084 degrees QTc Int : 515 ms Normal sinus rhythm Left bundle branch block Abnormal ECG Confirmed by CECIL PATINO, TIFFANY ([id number]), editor managing newspaper PAUL DÍAZ ([id number]) on 11/11/2022 8:35:09 AM Referred By: AKILA Confirmed By:TIFFANY JACOB MD
--- NOTE | 2022-11-09 11:10 | EDS_ITS ---
HPI History of Present Illness Chief Complaint: Shortness of Breath Narrative Narrative: 51-year-old male presenting with left posterior rib pain/flank pain. He states this is ongoing for days. The pain has been constant. Patient seen on 11/05/2022 and had normal evaluation at that point. Patient states he is not short of breath. He is using albuterol inhaler. He states he has chronic dyspnea. He has not had a fever, chills, body aches. He does have a history of kidney stones but denies dysuria/hematuria. Patient reports no nausea or vomiting. No anterior chest pain or chest pressure. No sharp pleuritic pain. PFSH PFSH Medical History Chronic dyspnea Smoker Home Medications albuterol sulfate 90 mcg/actuation aerosol inhaler (Proventil HFA) 2 puff inhalation Q6H PRN shortness of breath or wheezing #8.5 grams 04/20/22 [Rx Last Taken Unknown] albuterol sulfate 90 mcg/actuation aerosol inhaler (Ventolin HFA) 1 - 2 puff inhalation Q4H PRN PRN Wheezing #1 device 08/21/22 [Rx Last Taken Unknown] Allergy/AdvReac Type Severity Reaction Status Date / Time No Known Allergies Allergy Verified 11/09/22 10:45 Surgical History H/O hernia repair Social History Smoking Status: Current every day smoker tobacco type: cigarettes substance use type: does not use EXAM Physical Exam Const Vital Signs: 11/09/22 10:43 11/09/22 10:55 11/09/22 11:38 Temperature 97.0 F L Temperature Source Temporal Pulse Rate 91 Respiratory Rate 18 Respiratory Effort Short of Breath Blood Pressure 148/100 H Blood Pressure Mean 116 Pulse Ox 98 Oxygen Delivery Method Room Air Room Air 11/09/22 12:45 11/09/22 14:04 Temperature Temperature Source Pulse Rate 87 Respiratory Rate 16 Respiratory Effort Blood Pressure Blood Pressure Mean Pulse Ox Oxygen Delivery Method Room Air Positive well nourished General Appearance ED: NAD; Negative for pallor HEENT Reports moist mucous membranes Eyes PERRL General Eye ED: Negative for pale conjunctiva or scleral icterus Resp normal respiratory effort and clear to auscultation bilaterally Auscultation: Negative for rales, rhonchi or wheezes Cardio regular rate and regular rhythm GI normal to inspection, nondistended, normoactive bowel sounds Back/Spine General Back: CVA tenderness left Neuro oriented x3 and CN's II-XII intact bilaterally Sensorium / Orientation: alert Psych mental status grossly normal Skin no rashes or lesions noted General Skin Exam: Negative for jaundice or pallor MDM MDM MDM Narrative Medical decision making narrative: 51-year-old male with history of tobacco abuse presenting with left posterior rib pain. Differential includes but is not limited to ACS, pneumonia, pneumothorax, muscle strain, costochondritis, kidney stone, pyelonephritis, diverticulitis. PE was considered however the patient is PERC negative and does not have sharp pleuritic pain. Aortic dissection was also considered and he does have ripping or tearing pain. He has localized pain to left flank. He does have CVA tenderness. His lungs are clear to auscultation. He is not describing any new shortness of breath. We will obtain a chest pain work-up including CBC, BMP, troponin, EKG, chest x-ray. We will also obtain a urinalysis to make sure he does have any hematuria or UTI. Vital signs are stable he is afebrile. CBC shows no leukocytosis. Hemoglobin slightly concentrated at 17. Renal function electrolytes are normal. High-sensitivity troponin is 9. EKG on my interpretation shows sinus rhythm with a ventricular rate of 87 bpm without sign of ischemic change. CBC and BMP are unremarkable. Urinalysis negative for occult blood. He continued pain and had a second dose of morphine so I did obtain a CT abdomen pelvis without contrast to make sure he did not have a kidney stone and this was negative. Chest x-ray on my interpretation shows no acute process. High-sensitivity troponin is 9. Pain has been ongoing for days and I do not think he needs a delta troponin. PERC negative. After being counseled of the findings the patient started calling me a psychiatric doctor. I am not really sure why he was doing this. He is stating that he needs narcotics for home. I do not think this is warranted. Likely with a negative work-up this is something musculoskeletal. He was offered Naprosyn and muscle relaxers. At this point he came very agitated and stating that he was going to call Medicare. He stated that his pain was so bad he could barely talk why he was continuously telling me that I am a psychiatric doctor. He also stated that he could barely walk in the room while he was wa lking around the room. His behavior is odd but he is not suicidal, homicidal. I do not think he is a threat to himself. I do not believe he needs narcotics. I again offered muscle relaxers and Naprosyn for him. Impression: 1. left flank pain 2. Atypical chest pain 3. Agitation Lab Data Labs: Laboratory Results - last 24 hr 11/09/22 11/09/22 11/09/22 11:27 11:27 12:03 WBC 7.4 RBC 5.28 Hgb 17.0 H Hct 49.2 MCV 93.2 MCH 32.2 H MCHC 34.6 RDW Std Deviation 46.1 H RDW Coeff of Manuel 13.4 Plt Count 184 MPV 10.6 Immature Gran % (Auto) 0.300 Neut % (Auto) 43.4 L Lymph % (Auto) 41.6 H Phillips % (Auto) 10.5 H Eos % (Auto) 3.8 Baso % (Auto) 0.4 Absolute Neuts (auto) 3.2 Absolute Lymphs (auto) 3.09 Nucleated RBC % 0 Sodium 136 Potassium 4.3 Chloride 107 Carbon Dioxide 26.0 Anion Gap 3 L BUN 17 Creatinine 0.92 Estim Creat Clear Calc 98.90 Est GFR (MDRD) Af Amer 110 Est GFR (MDRD) Non-Af 91 BUN/Creatinine Ratio 18.5 Glucose 93 Calcium 8.6 Troponin I High Sens 9 Urine Color Yellow Urine Clarity Clear Urine pH 6.0 Ur Specific Evant 1.020 Urine Protein 15 H Urine Glucose (UA) Normal Urine Ketones 5 H Urine Occult Blood Negative Urine Nitrite Negative Urine Bilirubin Negative Urine Urobilinogen Normal Ur Leukocyte Esterase 25 H Urine RBC 0 SEEN Urine WBC 0 SEEN Ur Squamous Epith Cells 0 SEEN Urine Bacteria 0 SEEN Urine Mucus 0 SEEN Radiography Diagnostic Testing: Clinical Impression(s) from Imaging Studies Chest X-Ray 11/09/22 11:35 IMPRESSION: No radiographic evidence of acute cardiopulmonary disease. Electronically Signed: Amos Ngo MD, PATRICIA at 12:19 EDT , Abdomen/Pelvis CT 11/09/22 13:16 IMPRESSION: Bilateral nonobstructing renal calculi detailed above. Electronically Signed: Amos Ngo MD, PATRICIA at 14:00 EDT , Discharge Plan Triage Chief Complaint: Shortness of Breath ED Provider: Hunter Lopez Dx/Rx/DC Orders Prescriptions: No Action albuterol sulfate [Proventil HFA] 90 mcg/actuation HFA aerosol inhaler 2 puff inhalation Q6H PRN (Reason: shortness of breath or wheezing) Qty: 8.5 1RF albuterol sulfate [Ventolin HFA] 90 mcg/actuation HFA aerosol inhaler 1 - 2 puff inhalation Q4H PRN PRN (Reason: Wheezing) Qty: 1 3RF Primary Care Provider: Adriana Lyn Referrals: Adriana Lyn [Primary Care Provider] -
[2022-11-09] MEDS: Morphine 4 MG/ML Syringe IV (11:23)
[2022-11-09] MEDS: Ondansetron 4 MG/2 ML Vial IV (11:23)
[2022-11-09 11:33] LABS: Absolute Lymphocyte Count 3.09 X10^3/uL (0.83-4.51); Absolute Neutrophil Count 3.2 X10^3/uL (2.0-7.7); Basophil# 0.03 X10^3/uL; Basophil% 0.4 % (0-1); Eosinophil# 0.28 X10^3/uL; Eosinophils% 3.8 % (0-5); Hematocrit 49.2 % (40-54); Lymphocyte # 3.09 X10^3/ul (0.83-4.51); Lymphocyte % 41.6 % (19-41); Mean Corp Hgb Conc 34.6 g/dL (32-36); Mean Corpuscular Hgb 32.2 pg (27.0-32.0); Mean Corpuscular Volume 93.2 fL (80-94); Mean Platelet Vol. 10.6 fl (6.2-12.0); Monocyte# 0.78 X10^3/uL; Monocyte% 10.5 % (0-10); NRBC Flagged by Analyzer 0 % (0-5); Neutrophil # 3.22 X10^3/uL (2.7-7.7); Neutrophil % 43.4 % (47-70); Platelet Count 184 K/mm3 (150-450); RBC Distribution Width CV 13.4 % (11.6-14.6); RBC Distribution Width SD 46.1 fl (35.1-43.9); Red Blood Count 5.28 M/mm3 (4.6-6.2); White Blood Count 7.4 K/mm3 (4.4-11.0)
--- NOTE | 2022-11-09 11:35 | RAD_ITS ---
INDICATION: chest pain EXAMINATION/TECHNIQUE: X-RAY - XR Chest 1 View COMPARISON: 11/05/2022. FINDINGS: LINES/DEVICES: None. LUNGS: No consolidation, edema or effusion. No pneumothorax. MEDIASTINUM AND CARDIOVASCULAR STRUCTURES: Cardiac silhouette not enlarged. Central airways and mediastinal contour are unremarkable. BONES AND SOFT TISSUES: Degenerative changes mid and lower thoracic spine. Stable exam. RAD/Chest 1 View (Portable) IMPRESSION: No radiographic evidence of acute cardiopulmonary disease. Electronically Signed: Amos Ngo MD, PATRICIA at 12:19 EDT ,
[2022-11-09 11:51] LABS: Anion Gap 3 (5-15); BUN 17 mg/dL (7-18); BUN/Creat Ratio 18.5 RATIO (10-20); Calcium,Total 8.6 mg/dL (8.5-10.1); Chloride 107 mmol/L (98-107); Creatinine, Serum 0.92 mg/dL (0.70-1.30); EST Glomerular Filtration Rate 91 mL/min (>60); Est Glom Filt Rate - Afr Amer 110 mL/min (>60); Glucose 93 mg/dL (74-106); Potassium 4.3 mmol/L (3.5-5.1); Sodium Level 136 mmol/L (136-145); Troponin-I HS 9 pg/mL (3.0-78.0)
[2022-11-09 12:08] LABS: Bacteria 0 SEEN /hpf (None Seen); Mucous, Urine 0 SEEN /hpf (<or=2+); Red Blood Cells-Urine 0 SEEN /hpf (0-5); Squamous Epithelial Cells - UA 0 SEEN /hpf (0-5); White Blood Cells 0 SEEN /hpf (0-5)
[2022-11-09 12:09] LABS: Color, Urine Yellow (Yellow); Glucose, Dipstick Normal (Normal); Ketone-Dipstick 5 mg/dl (Negative); Leukocyte Esterase-Dipstick 25 /ul (Negative); Nitrite-Dipstick Negative (Negative); Occult Blood-Urine Negative /ul (Negative); Protein-Dipstick 15 mg/dl (Negative); Urine Bilirubin Dipstick Negative (Negative); Urine Clarity Clear (Clear); Urine Urobilinogen Normal (Normal)
[2022-11-09 12:45] VITALS: PULSE 87
--- NOTE | 2022-11-09 13:16 | CT_ITS ---
INDICATION: left flank pain EXAMINATION: CT ABDOMEN AND PELVIS WITHOUT CONTRAST - CT Abdomen And Pelvis W/O Contrast Injection TECHNIQUE: Helically acquired images were obtained of the abdomen and pelvis without oral or IV contrast. A radiation dose optimization technique was used for this scan. IV Contrast dosage and agent: None. Oral contrast: None. COMPARISON: None. FINDINGS: LOWER CHEST: Lung bases are clear. No cardiomegaly or pericardial effusion. LIVER: There are numerous cysts seen throughout both lobes of the liver. The largest of these is seen in the anterior segment of the right lobe 4.41 cm transverse. GALLBLADDER AND BILIARY TREE: No calcified gallstones. No gallbladder distension or wall edema. No intra- or extrahepatic biliary ductal dilation. PANCREAS: No focal cystic or solid mass. SPLEEN: Normal size without focal cystic or solid mass. ADRENAL GLANDS: No nodules. KIDNEYS AND URETERS: There is a 2 mm nonobstructing left midpole calculus. There is a 1 mm nonobstructing right midpole calculus. No evidence of hydronephrosis or mass. Ureters are normal in course and caliber. PERITONEUM: No ascites or free air. No other fluid collection. BOWEL: No evidence of acute appendicitis. No stomach or bowel distension. No focal inflammatory change. LYMPH NODES: No enlarged mesenteric or retroperitoneal lymph nodes. VESSELS: Aorta is non-dilated. URINARY BLADDER: Unremarkable. REPRODUCTIVE ORGANS: No pelvic masses. ABDOMINAL WALL: No discrete abdominal or pelvic wall hernia. BONES: Mild degenerative disc disease throughout the lumbar spine with mild bilateral facet arthropathy L4-5 and L5-S1. No lytic or blastic abnormality. CT/Abdomen/Pelvis without Cont IMPRESSION: Bilateral nonobstructing renal calculi detailed above. Electronically Signed: Amos Ngo MD, PATRICIA at 14:00 EDT ,
[2022-11-09 14:04] VITALS: RESP 16
== END 2022-11-09 14:31 | disposition home or self-care (01) ==
PROVIDERS: Emergency Provider Student in an Organized Health Care Education/Training Program; Visit Provider Student in an Organized Health Care Education/Training Program
DX: R06.02 Shortness of breath (principal); R10.9 Unspecified abdominal pain; R07.81 Pleurodynia; R07.89 Other chest pain; Z87.891 Personal history of nicotine dependence; R45.1 Restlessness and agitation
CPT/HCPCS: 71045; 74176; 80048; 81001; 84484; 85025; 93005; 96374; 96375; 99283; J2405